=== PATIENT | male | born 1955 ===

== ENCOUNTER 2018-09-13 05:57 | Inpatient (IN) | payer BC ==
--- NOTE | 2018-09-07 19:18 | HP ---
AMENDED REPORT NOW INCLUDES DESIGNATED COSIGNER HISTORY AND PHYSICAL: DATE OF ADMISSION/SURGERY: 09/13/18 DATE OF OFFICE VISIT: 09/07/18 SURGEON: Natalie Russell MD. * (DICTATED BY CLOVIS TABARES) PROCEDURE: Right total knee arthroplasty. CHIEF COMPLAINT: Right knee pain. HISTORY OF PRESENT ILLNESS: Mr. Townsend is a 63-year-old gentleman with continued complaints of right knee pain. He has failed conservative treatment and elected to proceed with a right total knee arthroplasty. PAST MEDICAL HISTORY: Sleep apnea, high cholesterol, anxiety, and hypertension. PAST SURGICAL HISTORY: Right knee arthroscopy, right foot surgery, and a cyst removal. CURRENT MEDICATIONS: 1. Magnesium. 2. Amlodipine 2.5 mg daily. 3. Fish oil. 4. Trazodone 50 mg q.h.s. 5. Nasonex. 6. Venlafaxine 37.5 mg daily. 7. Clonidine 0.1 mg twice a day. 8. Lovastatin 40 mg q.h.s. 9. Aspirin 81 mg daily. 10. Multivitamin. 11. Vitamin B12. 12. Olopatadine twice a day. ALLERGIES: To PINWORM MEDICATION. FAMILY HISTORY: Bladder cancer and leukemia. SOCIAL HISTORY: He is a 63-year-old gentleman, lives with his . He does not smoke or use drugs or alcohol. REVIEW OF SYSTEMS: A complete 14-point review of systems was reviewed with the patient. It was all negative or noncontributory. He denies history of DVT, PE , hepatitis, HIV, or anesthesia problems. PHYSICAL EXAMINATION GENERAL: He is well developed, well nourished, in no acute distress. VITAL SIGNS: He stands 74 inches tall, weighs 227 pounds. His blood pressure is 114/80 and his heart rate is 72. HEENT: Normocephalic, atraumatic. NECK: Supple. No palpable lymph nodes. PULMONARY: The lungs are clear to auscultation bilaterally. CARDIO: Regular rate and rhythm. Strong S1, S2. ABDOMEN: Soft, nontender, nondistended. NEUROLOGICAL: He is alert and oriented x3. MUSCULOSKELETAL: Right lower extremity: The skin is intact. There are no open wounds or abrasions. There is a moderate effusion. Range of motion is 15 to 120 degrees of flexion. There is a 12 to 15-degree valgus deformity of both knees, right greater than left. There is a 2+ dorsalis pedis pulse, intact sensation, and his lower extremity muscle group strengths are intact at 5/5. ASSESSMENT AND PLAN: Mr. Townsend is a 63-year-old gentleman with end-stage osteoarthritis of the right knee. He has failed conservative treatment and elected to proceed with a right total knee arthroplasty. The surgery is scheduled for 09/13/[address] Russell discussed the risks and benefits of the surgery at today's visit and all of his questions were answered. He will follow up with Dr. Russell 2 weeks after the surgery. CLOVIS TABARES [id number]/CPS #: [id number] MTDD
[~2018-09-13 05:57] MED LIST: Buffered Lidocaine 0.9% SYRIN* 5 ML/SYR SYRINGE INTRADERM ONE; Tranexamic Acid 1,000 MG in NS 0.9% 50 ML* (outpatient use) IV SCH
[2018-09-13] MEDS ORDERED: Gabapentin CAP(*) 300 MG PO ONE (06:00)
[2018-09-13] MEDS ORDERED: celeCOXIB CAP* 200 MG PO ONE (06:00)
[2018-09-13] MEDS ORDERED: Famotidine IV* 10 MG/ML 2 ML (20 mg) IV ONE (06:00)
[2018-09-13] MEDS ORDERED: Dexamethasone IV* 4 MG/ML 1 ML (4 MG) IV SLOW PU ONE (06:00)
[2018-09-13] MEDS ORDERED: Lactated Ringers 1000 ML Bag* 1,000 ML IV SCH (06:00)
--- OUTSIDE RECORDS SUMMARY | 2018-09-13 06:00 | XMS REPORT | Continuity of Care Document ---
:1955 External Reference #:[id number] Author Name David Degroot Care Team Providers Name Role Phone David Perry DO Primary Care Physician Unavailable Payers Type Date Identification Numbers Payment Provider Subscriber Policy Number: [id number] BS Facets Victor Hugo Townsend PayID: [id number] [address] [address] [place] [address] Advance Directives Description No Information Available Problems Date Description Provider Status Onset: 11/07/2017 Obstructive sleep apnea syndrome Ivette Natarajan DNP, FELIX, Active MAITRE D'-BC Onset: 06/04/2018 Localized, primary osteoarthritis Natalie Russell M.D. 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 [employer] Tobacco Use Start: Unknown Never Smoked Cigarettes Smoking Status Reviewed: 09/07/18 Never Smoked Cigarettes ETOH Use Denies alcohol use Tobacco Use Start: Unknown Patient has never smoked Recreational Drug Use Denies Drug Use Exercise Type/Frequency Exercises sporadically Allergies, Adverse Reactions, Alerts Date Description Reaction Status Severity Comments 09/06/2017 Pin Worm Medication Active Medications Medication Date Status Form Strength Qnty SIG Indications Ordering Provider Magnesium 11/07/ Active Capsules 500mg 1 tab by Ivette 2018 mouth Natarajan, every DNP, RN, other MAITRE D'- day. 400 mg per pt 01/08/18. Amlodipine / Active Tablets 2.5mg 1 by Unknown Besylate 0000 mouth every day Fish Oil / Active Capsules 1000mg 1 by Unknown 0000 mouth daily Trazodone HCL / Active Tablets 50mg 1 tablet Unknown 0000 at bedtime every night Nasonex / Active Suspension 50mcg/Act use two Unknown 0000 sprays in each nostril once daily Venlafaxine HCL / Active Caps ER 24HR 37.5mg once Unknown ER 0000 daily Clonidine HCL / Active Tablets 0.1mg 1 by Unknown 0000 mouth twice a day Lovastatin / Active Tablets 40mg take one Unknown 0000 tablet by mouth at bedtime Aspir-81 / Active Tablets DR 81mg 1 by Unknown 0000 mouth every day Multiple / Active Tablets 1 by Unknown Vitamin Plus 0000 mouth Lycopene every other day Vitamin B12 / Active Tablets 500mg 1 by Unknown 0000 mouth two times per day Olopatadine HCL / Active 1 drop Unknown 0000 each eye twice a day Tamsulosin HCL / Active Capsules 0.4mg 1 by Unknown 0000 mouth every day Lidocaine / Active Gel Patches 4% apply Unknown 0000 patch up to 12 hours once a day. Vitamin B 00/ Hx Tablets 100mg 1 by Unknown Complex 0000 - mouth 2017 day Patanol / Hx Solution 0.1% one drop Unknown 0000 - each eye 06/03/ twice a 2018 day Fexofenadine /00/ Hx Tablets 180mg once Unknown HCL 0000 - daily 2017 Acetaminophen 00/ Hx Capsules 500mg 1 po Unknown 0000 - daily as needed 2018 Ibuprofen 00/ Hx Capsules 200mg as Unknown 0000 - needed 2017 Kaopectate /00/ Hx Tablets As Unknown 0000 - directed , as 2018 needed Fexofenadine /00/ Hx Tablets 180mg 30tab 1 tab by Unknown HCL 0000 - s mouth 06/03/ every 2017 day in the morning prn Famotidine / Hx Tablets 20mg 1 by Unknown 0000 - mouth 2017 day as needed Immunizations Description No Information Available Vital Signs Date Vital Result Comment 09/07/2018 9:15am Height 74 inches 6'2" Weight 227.00 lb Heart Rate 72 /min BP Systolic 142 mmHg BP Diastolic 80 mmHg Respiratory Rate 18 /min Body Temperature 97.4 F Pain Level 5 BMI (Body Mass Index) 29.1 kg/m2 07/10/2018 8:59am Height 74 inches 6'2" Weight 223.12 lb Heart Rate 76 /min BP Systolic Sitting 110 mmHg Lue large cuff BP Diastolic Sitting 62 mmHg Lue large cuff Respiratory Rate 20 /min O2 % BldC Oximetry 96 % On Ra BMI (Body Mass Index) 28.6 kg/m2 06/04/2018 9:46am Height 74 inches 6'2" Weight 227.00 lb Heart Rate 60 /min BP Systolic 120 mmHg BP Diastolic 80 mmHg BMI (Body Mass Index) 29.1 kg/m2 04/05/2018 1:24pm Height 74 inches 6'2" Weight 258.00 lb Heart Rate 52 /min BP Systolic Sitting 124 mmHg BP Diastolic Sitting 86 mmHg Respiratory Rate 14 /min O2 % BldC Oximetry 98 % BMI (Body Mass Index) 33.1 kg/m2 01/08/2018 8:33am Height 74 inches 6'2" Weight 222.38 lb Heart Rate 64 /min BP Systolic Sitting 108 mmHg Lue large cuff BP Diastolic Sitting 60 mmHg Lue large cuff Respiratory Rate 16 /min O2 % BldC Oximetry 98 % On Ra BMI (Body Mass Index) 28.5 kg/m2 11/07/2017 8:09am Height 74 inches 6'2" Weight 226.00 lb Heart Rate 80 /min BP Systolic Sitting 122 mmHg Rue large cuff BP Diastolic Sitting 78 mmHg Rue large cuff Respiratory Rate 16 /min O2 % BldC Oximetry 97 % BMI (Body Mass Index) 29.0 kg/m2 09/06/2017 9:20am Height 74 inches 6'2" Weight 238.00 lb Heart Rate 72 /min BP Systolic Sitting 122 mmHg BP Diastolic Sitting 60 mmHg Respiratory Rate 18 /min O2 % BldC Oximetry 95 % BMI (Body Mass Index) 30.6 kg/m2 Neck Circumference in inches 16.5 Results Test Date Facility Test Result H/L Range Note Laboratory test 08/03/2018 [facility] Phosphorus 3.2 mg/dL N 2.5-5.[address] [place] [address] [phone] Magnesium 2.1 mg/dL N 1.9-2.7 TSH (Thyroid Stim Horm) 1.85 mcIU/mL N 0.34-5.60 Vitamin B12 635 pg/mL N 180-914 1 Lipid Profile 08/03/2018 [facility] Triglycerides 53 mg/dL 2 (Trig/Chol/HDL) [address] [place] [address] [phone] Cholesterol 165 mg/dL 3 HDL Cholesterol 57.7 mg/dL 4 LDL Cholesterol 97 mg/dL 5 Comp Metabolic Panel 08/03/2018 [facility] Sodium 140 mmol/L N 135-145 [address] [place] [address] [phone] Potassium 4.9 mmol/L N 3.5-5.0 Chloride 104 mmol/L N 101-111 Co2 Carbon Dioxide 31 mmol/L N 22-32 Anion Gap 5 mmol/L N 2-11 Glucose 109 mg/dL High 70-100 Blood Urea Nitrogen 22 mg/dL N 6-24 Creatinine 1.08 mg/dL N 0.67-1.17 BUN/Creatinine Ratio 20.4 High 8-20 Calcium 9.4 mg/dL N 8.6-10.3 Total Protein 6.5 g/dL N 6.4-8.9 Albumin 4.3 g/dL N 3.2-5.2 Globulin 2.2 g/dL N 2-4 Albumin/Globulin Ratio 2.0 N 1-3 Total Bilirubin 0.50 mg/dL N 0.2-1.0 Alkaline Phosphatase 89 U/L N 34-104 Alt 25 U/L N 7-52 Ast 21 U/L N 13-39 Egfr Non- 68.8 >60 Egfr 83.3 >60 6 CBC Auto Diff 08/03/2018 [facility] White Blood 5.5 10^3/uL N 3.5-10.[address] [place] [address] [phone] Red Blood Count 4.58 10^6/uL N 4.00-5.40 Hemoglobin 14.1 g/dL N 14.0-18.0 Hematocrit 42 % N 42-52 Mean Corpuscular Volume 91 fL N 80-94 Mean Corpuscular Hemoglobin 31 pg N 27-31 Mean Corpuscular HGB Conc 34 g/dL N 31-36 Red Cell Distribution Width 14 % N 10.5-15 Platelet Count 219 10^3/uL N 150-450 Mean Platelet Volume 7.6 fL N 7.4-10.4 Abs Neutrophils 3.6 10^3/uL N 1.5-7.7 Abs Lymphocytes 1.2 10^3/uL N 1.0-4.8 Abs Monocytes 0.5 10^3/uL N 0-0.8 Abs Eosinophils 0.3 10^3/uL N 0-0.6 Abs Basophils 0 10^3/uL N 0-0.2 Abs Nucleated RBC 0 10^3/uL Granulocyte % 64.9 % Lymphocyte % 21.6 % Monocyte % 8.3 % Eosinophil % 4.6 % Basophil % 0.6 % Nucleated Red Blood Cells % 0.1 1,25 Dihydroxy 08/03/2018 [facility] Calcitriol 38 pg/mL 18- 64 7 Vitamin D [address] [place] [address] [phone] Vitamin D 1,25 08/03/2018 [facility] Vitamin D Total 25.3 ng/mL N 20-50 And Vitamin D,2 [address] [facility] [address] [place] [address] [phone] Iron & Iron 08/03/2018 [facility] Iron 132 g/dL N 50-212 Binding Capacity [address] [place] [address] [phone] Unsaturated Iron Binding < 335 g/dL Total Iron Binding Capacity 350 g/dL N 250-450 Transferrin 250 mg/dL N 203-362 % Iron Saturation 38 % N 15-55 Laboratory test 08/03/2018 [facility] Ferritin 186.8 ng/mL N 24-336 finding [address] [place] [address] [phone] 1 Normal Range 180 to 914 Indeterminate Range 145 to 180 Deficient Range <145 2 Desirable: <150 Borderline High: 150-199 High: 200-499 Very High: >500 3 Desirable: <200 Borderline High: 200-239 High: >239 4 Low: <40 Desirable: 40-60 High: >60 5 Desirable: <100 Near Optimal: 100-129 Borderline High: 130-159 High: 160-189 Very High: >189 6 Because ethnic data is not always readily available, this report includes an eGFR for both -Americans and non- Americans. The National Kidney Disease Education Program (NKDEP) does not endorse the use of the MDRD equation for patients that are not between the ages of 18 and 70, are , have extremes of body size, muscle mass, or nutritional status, or are non- or non-. According to the National Kidney Foundation, irrespective of diagnosis, the stage of the disease is based on the level of kidney function: Stage Description GFR(mL/min/1.73 m(2)) 1 Kidney damage with normal or decreased GFR 90 2 Kidney damage with mild decrease in GFR 60-89 3 Moderate decrease in GFR 30-59 4 Severe decrease in GFR 15-29 5 Kidney failure <15 (or dialysis) 7 ADDITIONAL INFORMATION This test was developed and its performance characteristics determined by [facility] in a manner consistent with CLIA requirements. This test has not been cleared or approved by the U.S. Food and Drug Administration. 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 M.D. knee M25.562 Pain in left knee M25.461 Effusion, right knee M25.462 Effusion, left knee M17.0 Bilateral primary osteoarthritis of knee Office Visit 04/05/2018 Pulmonology And Ivette G47.33 Obstructive sleep 1:30p [facility], [facility].81 Restless legs syndrome G47.14 Hypersomnia due to medical condition Office Visit 01/08/2018 Pulmonology And Ivette G47.33 Obstructive sleep 8:15a [facility] Natarajan RN, apnea (adult) [facility] MAITRE D'-BC (pediatric) R09.02 Hypoxemia Office Visit 11/07/2017 Pulmonology And Ivette G47.33 Obstructive sleep 8:15a [facility] Natarajan RN, apnea (adult) [facility] MAITRE D'-BC (pediatric) Office Visit 09/06/2017 Pulmonology And Eileen Espino, R06.83 Snoring 9:30a [facility] R40.0 Somnolence G25.81 Restless legs syndrome 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 at [facility]09/13/2018 8:15 am - Radu Rodriguez PA-C at [facility]09/13/2018 8:15 am - CLOVIS June at [facility]10/31/2018 8:15 am - Ivette Natarajan DNP, RN, MAITRE D'-BC [facility]/13/2018 8:15 am - Natalie Russell M.D. at [facility]09/07/2018 - Natalie Russell M.D.M25.561 Pain in right kneeFollow up:Follow up: 2 weeks after cvfoxnzN62.461 Effusion, right kneeM17.0 Bilateral primary osteoarthritis of knee
--- OUTSIDE RECORDS SUMMARY | 2018-09-13 06:01 | XMS REPORT | Continuity of Care Document ---
:1955 External Reference #:[id number] Author Name Katerin Washington Care Team Providers Name Role Phone David Perry DO Primary Care Physician Unavailable Payers Type Date Identification Numbers Payment Provider Subscriber Policy Number: [id number] BS Facets Victor Hugo Townsend PayID: [id number] [address] [address] [place] [address] Advance Directives Description No Information Available Problems Date Description Provider Status Onset: 11/07/2017 Obstructive sleep apnea syndrome Ivette Natarajan DNP, FELIX, Active POLITICAL ADVISOR-BC Onset: 06/04/2018 Localized, primary osteoarthritis Natalie Russell M.D. Active Onset: 07/10/2018 Periodic limb movement disorder Ivette Natarajan DNP, RN, Active POLITICAL ADVISOR-BC Onset: 07/10/2018 Malaise and fatigue Ivette Natarajan DNP, FELIX, Active POLITICAL ADVISOR-BC Family History Date Family Member(s) Problem(s) Comments General Diabetes General Heart Disease General Hypertension General Cancer Father Anemia Father due to Leukemia () Father Leukemia Father Heavy snoring Mother Bladder Cancer Mother due to Cancer () Siblings 1 younger sister, her son nephew has sleep apnea Social History Type Date Description Comments Sex Unknown Marital Status Lives With 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 400 mg per pt 01/08/18. Amlodipine [...] 12 hours once a day. Vitamin B / Hx Tablets 100mg 1 by Unknown Complex 0000 - mouth 09/05/ 2017 day Patanol / Hx Solution 0.1% one drop Unknown 0000 - each eye 06/03/ twice a 2018 day Fexofenadine 00/ Hx Tablets 180mg once Unknown HCL 0000 - daily 2017 Acetaminophen 00/ Hx Capsules 500mg 1 po Unknown 0000 - daily as needed 2018 Ibuprofen 00/ Hx Capsules 200mg as Unknown 0000 - needed 2017 Kaopectate /00/ Hx Tablets As Unknown 0000 - directed , as 2018 needed Fexofenadine 00/ Hx Tablets 180mg 30tab 1 tab by Unknown HCL 0000 - s mouth 06/03/ every 2017 day in the morning prn Famotidine / Hx Tablets 20mg 1 by Unknown 0000 - mouth 06/03/ 2017 day as needed Immunizations Description No Information Available Vital Signs Date Vital Result Comment 07/10/2018 8:59am Height 74 inches 6'2" Weight [...] Result H/L Range Note Laboratory test 08/03/2018 [facility] Phosphorus 3.2 mg/dL N 2.5-5.[address] [place] [address] [phone] Magnesium 2.1 mg/dL N 1.9-2.7 TSH (Thyroid Stim Horm) 1.85 mcIU/mL N 0.34-5.60 Vitamin B12 635 pg/mL N 180-914 1 Lipid Profile 08/03/2018 [facility] Triglycerides 53 mg/dL 2 (Trig/Chol/HDL) [address] [place] [address] [phone] Cholesterol 165 mg/dL 3 HDL Cholesterol 57.7 mg/dL 4 LDL Cholesterol 97 mg/dL 5 Comp Metabolic Panel 08/03/2018 [facility] Sodium 140 mmol/L N 135-[address] [place] [address] [phone] Potassium 4.9 mmol/L N 3.5-5.0 Chloride 104 [...] 83.3 >60 6 CBC Auto Diff 08/03/2018 [facility] White Blood 5.5 10^3/uL N 3.5-10.[address] [place] [address] [phone] Red Blood Count 4.58 10^6/uL N 4.00-5.40 [...] Blood Cells % 0.1 1,25 Dihydroxy 08/03/2018 [facility] Calcitriol 38 pg/mL 18- 64 7 Vitamin D [address] [place] [address] [phone] Vitamin D 1,25 08/03/2018 [facility] Vitamin D Total 25.3 ng/mL N 20-50 And Vitamin D,2 [address] [facility] [address] [place] [address] [phone] Iron & Iron 08/03/2018 [facility] Iron 132 g/dL N 50-212 Binding Capacity [address] [place] [address] [phone] Unsaturated Iron Binding < 335 g/dL Total Iron Binding Capacity 350 g/dL N 250-450 Transferrin 250 mg/dL N 203-362 % Iron Saturation 38 % N 15-55 Laboratory test 08/03/2018 [facility] Ferritin 186.8 ng/mL N 24-336 finding [address] [place] [address] [phone] 1 Normal Range 180 to 914 Indeterminate [...] developed and its performance characteristics determined by [facility] in a manner consistent with CLIA requirements. This test has not been cleared or approved by the U.S. Food and Drug Administration. Test Performed by: [facility] [address] [place] [address] Procedures Date Code Description Status 06/19/2018 90708 Polysomnography Sleep Staging 4+ Parameters W/Cpap Completed 09/15/2017 93300 Sleep Study Unattended,HRT Rate,Oxygen Sat,Resp Completed Effort/Airflow Encounters Type Date Location Provider Dx Diagnosis Office Visit 07/10/2018 Pulmonology Les Natarajan, G47.33 Obstructive sleep 9:00a [facility] MADSEN, NICOLETTE-KARLY apnea (adult) [facility] (pediatric) G47.61 Periodic limb movement disorder R53.83 Other fatigue Office Visit 06/04/2018 9:00a [facility] Natalie Russell, M25.561 Pain in right Of C.M.A. M.D. knee M25.562 Pain in left knee M25.461 Effusion, right knee M25.462 Effusion, left knee M17.0 Bilateral primary osteoarthritis of knee Office Visit 04/05/2018 PulmonWillie G47.33 Obstructive sleep 1:30p [facility] Natarajan RN, apnea (adult) [facility] WILL-BC (pediatric) G25.81 Restless legs syndrome G47.14 Hypersomnia due to medical condition Office Visit 01/08/2018 Pulmonology And Ivette G47.33 Obstructive sleep 8:15a [facility] Natarajan RN, apnea (adult) [facility]- (pediatric) R09.02 Hypoxemia Office Visit 11/07/2017 Pulmonology And Ivette G47.33 Obstructive sleep 8:15a [facility] Natarajan RN, apnea (adult) [facility] (pediatric) Office Visit 09/06/2017 Pulmonology And Eileen Espino, R06.83 Snoring 9:30a [facility] R40.0 Somnolence G25.81 Restless legs syndrome 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 at [facility]09/07/2018 9:00 am - Natalie Russell M.D. at [facility]07/10/2018 - Ivette Natarajan DNP, RN, [facility]- BCG47.33 Obstructive sleep apnea (adult) (pediatric)Follow up:3 monthsRecommendations:Continue PAP device, Benefitting and compliant with treatment. Change CPAP to 7 cm. will order filters and supplies Cleaning Wipe off mask daily (baby wipe-no scent, or warm water) Clean mask, tubing, filter, and water chamber weekly in mild no scent dish soap and water. Hang to dry. If you have anysleepiness while driving you MUST avoid operating a vehicle or machinery. If you have difficulty with your equipment, or need to replace your mask or hoses, please contact your homecare agency. A weight change of 20 pounds or more may have an effect on your equipment; if you are experiencing problems please call for an appointment. If you have any further questions, please call the [facility] at [phone].g47.61 Periodic limb movement disorderRecommendations:Lab work can be done with your other fasting labsR53.83 Other fatigue
[2018-09-13] MEDS ORDERED: Dexamethasone IV* 4 MG/ML 1 ML (4 MG) ONE (06:52)
[2018-09-13] MEDS ORDERED: Famotidine IV* 10 MG/ML 2 ML (20 mg) ONE (06:52)
[2018-09-13] MEDS ORDERED: Gabapentin CAP(*) 300 MG ONE (06:53)
[2018-09-13] MEDS ORDERED: ceFAZolin 2 GM PREMIX in ORs 2 GM/50 ML BAG IVPB ONE (06:53)
[2018-09-13] MEDS ORDERED: celeCOXIB CAP* 100 MG ONE (06:53)
[2018-09-13] MEDS ORDERED: Bupivacaine 0.5%* 50 ML VIAL ONE (07:14)
[2018-09-13] MEDS ORDERED: Naloxone* 0.4 MG/ML 1 ML VIAL IV PRN (10:51)
[2018-09-13] MEDS ORDERED: Ondansetron INJ* 2 MG/ML VIAL IV PRN ×2 (10:51→11:33)
[2018-09-13] MEDS ORDERED: fentaNYL* 50 MCG/ML 2 ML VIAL (100 MCG VIAL) IV PRN (10:51)
[2018-09-13] MEDS ORDERED: HYDROmorphone INJ1* 1 MG/ML SYRINGE IV PRN (10:51)
[2018-09-13] MEDS ORDERED: Polyethylene Glycol 3350* 17 GM PACKET PO PRN (11:33)
[2018-09-13] MEDS ORDERED: diPHENhydraMINE IV* 50 MG/ML 1 ml VIAL (BENADRYL) IV PRN (11:33)
[2018-09-13] MEDS ORDERED: Magnesium Hydroxide LIQ* 30 ML UDC PO PRN (11:33)
[2018-09-13] MEDS ORDERED: Bisacodyl SUPP* 10 MG SUPP PR PRN (11:33)
[2018-09-13] MEDS ORDERED: Acetaminophen TAB* 325 MG PO PRN (11:33)
[2018-09-13] MEDS ORDERED: oxyCODONE/Acetamin 5/325 MG* TAB PO PRN (11:33)
[2018-09-13] MEDS ORDERED: Cyclobenzaprine TAB* 10 MG PO PRN (11:33)
[2018-09-13] MEDS ORDERED: MOMETASONE FUROATE BOTH NARES PRN (11:43)
[2018-09-13] MEDS ORDERED: fentaNYL* 50 MCG/ML 2 ML VIAL (100 MCG VIAL) ONE (12:03)
[2018-09-13] MEDS: Lactated Ringers 1000 ML Bag* 1,000 ML IV SCH ×2 (13:09→23:10)
[2018-09-13] MEDS ORDERED: celeCOXIB CAP* 100 MG PO ONE (14:00)
[2018-09-13] MEDS: oxyCODONE/Acetamin 5/325 MG* TAB PO PRN ×3 (14:18→23:38)
[2018-09-13] MEDS ORDERED: Fluticasone NASAL SPRAY 50MCG* 16 gm SPRAY BTL BOTH NARES PRN (15:00)
[2018-09-13] MEDS: ceFAZolin 1 GM ADVAN(*) 1 GM in NS 0.9% 50 ML* 50 ML IVPB SCH ×2 (16:42→23:50)
[2018-09-13] MEDS ORDERED: Warfarin TAB(*) 6 MG PO ONE (17:00)
--- NOTE | 2018-09-13 17:02 | PN ---
Progress Note - Progress Note Date of Service: 09/13/18 SOAP: Patient seen and examined at bedside POD 0 sp RTK. He feels well with well controlled right knee pain. Has been OOB walking. Denies CP, SOB, dizziness, nausea, back pain or headache. No history of DVT or PE, using lovenox bridge to coumadin for DCT prophylaxis. RLE: DF/PF intact, DP2+, sensation intact distally. Site of spinal with dressing in place, no erythema, edema or drainage evident.
[2018-09-13] MEDS: amLODIPine TAB* 5 MG PO SCH (17:35)
[2018-09-13] MEDS: Fluticasone NASAL SPRAY 50MCG* 16 gm SPRAY BTL BOTH NARES SCH (17:36)
[2018-09-13] MEDS: Atorvastatin* 10 MG TAB PO SCH (17:36)
[2018-09-13] MEDS ORDERED: amLODIPine TAB* 5 MG PO SCH (18:00)
[2018-09-13] MEDS: traZODone TAB* 50 MG TAB PO SCH (21:09)
[2018-09-13] MEDS: Tamsulosin CAP* 0.4 MG PO SCH (21:09)
[2018-09-13] MEDS: oxyCODONE TAB* 5 MG TAB PO PRN (21:09)
[2018-09-13] MEDS: Docusate CAP* 100 MG PO SCH (21:10)
[2018-09-13] MEDS: Magnesium Hydroxide LIQ* 30 ML UDC PO SCH (21:10)
--- NOTE | 2018-09-13 23:22 | OP ---
DATE OF OPERATION: 09/13/18 - ROOM #349 DATE OF : 53 SURGEON: Natalie Russell MD. SUPERINTENDENT CONTAINER TERMINAL: CLOVIS Workman. Ms. Rodriguez did help throughout the procedure with preparation of the leg, wound retraction, manipulation of the knee and wound closure. ANESTHESIOLOGIST: Dr. Davis. ANESTHESIA: Spinal. PRE-OP DIAGNOSIS: Severe endstage degenerative osteoarthritis of the right knee joint with valgus deformity and flexion contracture. POST-OP DIAGNOSIS: Severe endstage degenerative osteoarthritis of the right knee joint with valgus deformity and flexion contracture. OPERATIVE PROCEDURE: Right total knee arthroplasty. TOURNIQUET TIME: 51 minutes. COMPLICATIONS: None. ESTIMATED BLOOD LOSS: 200 cc. SPECIMENS: Bone and cartilage from the right knee joint sent to Pathology. HARDWARE USED: This is cemented [employer] total knee arthroplasty hardware. Two packages of Simplex bone cement. For the femur, a size 8 right posterior- stabilized Legion Oxinium femoral component. For the tibia, a size 7 right tibial baseplate. For the insert, a 9-mm posterior-stabilized articular insert, size 7/8, and for the patella, 38-mm 3-peg all-poly patella. BRIEF HISTORY/INDICATIONS: Mr. Townsend is a 63-year-old gentleman with years of increasingly severe right knee pain and loss of motion. He developed valgus deformity. Radiographs showed endstage arthritis with [id number] contact. He failed conservative treatment with antiinflammatories, pain medication, intraarticular injections, and physical therapy. Due to continued pain and decreased quality of life, he elected to undergo right total knee arthroplasty. Informed consent was obtained from the patient. He understood the risks of surgery included to, but were not limited to bleeding, infection, damage to nearby structures, continued pain, need for further surgery, intraoperative fracture, nerve palsy, hardware failure or loosening, knee stiffness, loss of motion, anesthetic complications, stroke, heart attack, blood clot, and . He wished to proceed. INTRAOPERATIVE FINDINGS: Intraoperatively, the patient was noted to have severe flexion contracture of 25 degrees at start of case. He was brought to full extension. He was noted to have 17-degree valgus deformity. The patient was noted to have extensive osteophyte formation and complete loss of cartilage in the patellofemoral and lateral compartment. DESCRIPTION OF PROCEDURE: Mr. Townsend was identified in the preanesthesia unit. His right lower extremity was marked as the correct operative side. Informed consent was signed and placed in the chart. The patient was taken to the operating room. While the patient was having spinal anesthetic placed, spinal needle did break and a piece of the needle was retained in the patient. Dr. Voss, our neurosurgeon did make a small incision under sterile conditions and removed the broken needle. The entire needle was removed and this was confirmed with C-arm views. Please see his note for the procedure. Sandoval catheter was placed. Tourniquet was placed on the right thigh. Right lower extremity was prepped and draped in the usual sterile fashion. Preop time -out was made to correctly identify the patient, side and site. Appropriate perioperative antibiotics were given within 1 hour of incision. The tourniquet was inflated and total tourniquet time for this procedure was 58 minutes. A midline incision was made with a 10 blade and carried down to the extensor mechanism. A new 10 blade was used to make a standard medial parapatellar arthrotomy. The patella was subluxed laterally. Electrocautery was used to subperiosteally elevate soft tissue off the superomedial tibia to the midsagittal plane. The knee was flexed up. The anterior horn of the lateral meniscus and ACL were sharply released. A drill was used to enter the distal femur. Intramedullary distal femoral cutting guide was pinned on the distal femur. Oscillating saw was used to make the distal femoral cut. Next, the external rotation guide was pinned on the distal femur. Distal femur was sized to a size 8. Size 8 multi-cutting jig was pinned on the distal femur. Oscillating saw was used to make the appropriate 4 chamfer cuts. Extramedullary tibial cutting guide was pinned on the proximal tibia. Oscillating saw was used to make the proximal tibial cut perpendicular to the mechanical axis of the tibia. The bone was carefully removed. The knee was brought out to full extension. The knee did have full extension which was much improved from the flexion contracture of 25 degrees at start of the case. There was significant improvement in the valgus alignment to about 12 degrees. Electrocautery was used to release along the posterolateral capsule. A #15 blade was used in a pie- crusting technique to release some of the lateral ligament. The overall alignment was improved to about 10 degrees of valgus. Flexion and extension gaps were well balanced. The knee was flexed up. A lamina resource teacher was placed both medially and laterally. Any remaining meniscus was carefully removed using electrocautery. Curved osteotome was used to remove any posterior osteophytes. Tibial tray and drop meghna were placed and once again confirmed satisfactory tibial cut. A size 8 right femoral trial was impacted onto the distal femur and had excellent fit and stability. The box for the posterior-stabilized implant was prepared using a reamer and box cut osteotome. A size 7 tibial tray with a 9- mm insert trial was placed and the knee was taken through a range of motion. The knee had full extension to 130 degrees of flexion with satisfactory patellofemoral tracking. The patella was everted. A 9 mm of patellar bone and cartilage was carefully removed using an oscillating saw. The patella was sized to a size 38. Three peg holes were drilled through the size 38 guide. A 38 trial was placed and the knee was taken through a range of motion. There was satisfactory patellofemoral tracking. All trials were removed. The tibia was subluxed anteriorly and sized to a size 7. Proximal tibia was prepared using a size 7 keel punch. All bony cut surfaces were copiously irrigated with sterile saline and dried. Final implants were cemented into place starting with the tibia, followed by the femur , and last the patella. A 9-mm insert trial was placed and the knee was brought out into full extension. Tourniquet was turned down at 51 minutes. Electrocautery was used to obtain meticulous hemostasis. The knee was copiously irrigated with sterile saline. Once the cement had fully cured, the insert trial was removed. Any excess cement was removed from around the capsule and hardware. A 9 mm insert trial was chosen as a final insert. This was locked into position on the tibial tray. Stability of the insert was checked and rechecked and noted to be stable. The extensor mechanism was closed using interrupted #1 Vicryls. The rest of the incision was closed in a layered fashion using 0 and 2-0 Vicryls. Skin was closed using running 3-0 nylon suture. Sterile Xeroform, 4x4s, and Webril were used to cover the incision. Cameron wrap and cold pack were placed over this. The patient's anesthesia was reversed without difficulty. He was taken to the PACU in stable condition. Intended weightbearing will be weightbearing as tolerated. Intended DVT prophylaxis will be Coumadin with a Lovenox bridge. [id number]/[facility] #: [id number] KENDELL
[2018-09-13] MEDS: Morphine VIAL* 4 MG/ML VIAL (1 ml vial) IV PRN (23:47)
[2018-09-14] MEDS: oxyCODONE TAB* 5 MG TAB PO PRN ×5 (02:21→21:16)
[2018-09-14] MEDS: Morphine VIAL* 4 MG/ML VIAL (1 ml vial) IV PRN ×2 (02:23→04:28)
[2018-09-14] MEDS: oxyCODONE/Acetamin 5/325 MG* TAB PO PRN ×5 (04:23→23:19)
[2018-09-14 05:39] LABS: Hematocrit 38 % (42-52); Hemoglobin 12.7 g/dl (14.0-18.0); Mean Platelet Volume 7.2 fL (7.4-10.4); Platelet Count 216 10^3/ul (150-450)
[2018-09-14 05:45] LABS: INR 1.05 (0.77-1.02)
[2018-09-14 06:02] LABS: BUN/Creatinine Ratio 16.2 (8-20); Calcium 8.9 mg/dL (8.6-10.3); EGFR African American 92.1 (>60); EGFR Non-African American 76.1 (>60); Potassium 4.3 mmol/L (3.5-5.0)
[2018-09-14] MEDS: ceFAZolin 1 GM ADVAN(*) 1 GM in NS 0.9% 50 ML* 50 ML IVPB SCH (09:10)
[2018-09-14] MEDS: Magnesium Hydroxide LIQ* 30 ML UDC PO SCH ×2 (09:10→22:24)
[2018-09-14] MEDS: Docusate CAP* 100 MG PO SCH ×2 (09:10→22:23)
[2018-09-14] MEDS: Fluticasone NASAL SPRAY 50MCG* 16 gm SPRAY BTL BOTH NARES SCH (09:24)
--- NOTE | 2018-09-14 11:30 | PN ---
Progress Note - Progress Note Date of Service: 09/14/18 SOAP: Subjective: []Chatotient seen this am OOB in chair. He had difficulty with pain management last night and did not sleep although better this am. He denies headache, SOB, CP, palpitations or dizziness. He feels he would like to stay until tomorrow. Objective: [] Vital Signs Temp 98.6 F 09/14/18 04:22 Pulse 67 09/14/18 04:22 Resp 18 09/14/18 11:17 BP 151/79 09/14/18 04:22 Pulse Ox 97 09/14/18 08:00 Intake & Output 09/13/18 09/14/18 09/14/18 18:59 06:59 18:59 Intake Total 1550 1335 480 Output Total 1150 2050 200 Balance 400 -715 280 Weight 228 lb 3.2 oz Intake: IV Fluids 1550 990 LR 990 NS 50ML, Cefazolin 2G 50 lr 1500 IVPB 55 ABX - CEFAZOLIN 55 Oral 290 480 Output: Urine 200 Sandoval 1150 2050 Other: # Bowel Movements 0 Laboratory Results - last 24 hr 09/14/18 09/14/18 09/14/18 05:10 05:10 05:10 Hgb 12.7 L Hct 38 L Plt Count 216 MPV 7.2 L INR (Anticoag Therapy) 1.05 H Sodium 137 Potassium 4.3 Chloride 103 Carbon Dioxide 29 Anion Gap 5 BUN 16 Creatinine 0.99 Est GFR ( Amer) 92.1 Est GFR (Non-Af Amer) 76.1 BUN/Creatinine Ratio 16.2 Glucose 132 H Calcium 8.9 spine dressing dry and intact Right knee dressings are dry and intact calf NT and soft +Df right ankle sensation and circulation intact distally Assessment: []s/p Right total knee arthroplasty POD #1 Plan: []PT/OT WBAT RLE Coumadin with Lovenox bridge- 8 mg today Probable discharge home tomorrow Follow up with Dr. Russell as scheduled 10-14 days
[2018-09-14] MEDS: Enoxaparin(*) 40 MG/0.4 ML SYR SUBCUT SCH (11:36)
--- NOTE | 2018-09-14 11:40 | CONS ---
[facility] MEDICINE CONSULTATION REPORT: DATE OF ADMISSION: 09/13/18 DATE OF CONSULT: 09/13/18 PROVIDER: Ariella Castañeda NP ATTENDING PHYSICIAN: Dr. Russell. CONSULTING PHYSICIAN: Dr. Ramy Miner (dictated by Ariella Castañeda NP) . REASON FOR CONSULT: Comanagement of chronic medical conditions. HISTORY OF PRESENT ILLNESS: Mr. Townsend is a 63-year-old male with a past medical history significant for hypertension, hyperlipidemia, anxiety, and BPH who presented to [facility] for an elective right total knee arthroplasty. For complete details, please see H and P from CLOVIS Lai. In brief, the patient continued to complain of right knee pain, failed conservative treatment , and elected to proceed with the right total knee arthroplasty with Dr. Russell. In the immediate postoperative period, the patient has no complaints. Denies any nausea, vomiting, or diarrhea. Denies any abdominal pain. Denies any chest pain or shortness of breath. Denies any fever or chills. He denies any recent sick contacts or illnesses. Given his history of hypertension and hyperlipidemia, we were asked to see and evaluate him to help co-manage his chronic medical conditions. PAST MEDICAL HISTORY: 1. Hyperlipidemia. 2. Hypertension. 3. Anxiety. 4. BPH. 5. Sleep apnea. PAST SURGICAL HISTORY: 1. Right total knee arthroplasty. 2. Right foot surgery. 3. History of cyst removal. FAMILY HISTORY: No reported history of coronary artery disease or diabetes. Father had a history of leukemia. Mother with bladder and breast cancer. Sister with precancerous breast cancer. SOCIAL HISTORY: He denies any tobacco, alcohol, or illicit drug use. Surrogate decision maker in the event he is unable to make his own decisions is his . He is a full code. REVIEW OF SYSTEMS: A 14-point review of systems was completed and all pertinent positives are mentioned in the HPI. He does complain of mild right knee pain and mild anxiety prior to the procedure. Other than that all review of systems was negative. PHYSICAL EXAMINATION: General: Mr. Townsend is a 63-year-old male, resting in his room. He is awake, alert, and oriented x3. He appears well nourished, in no acute distress. HEENT: Head is atraumatic, normocephalic. Eyes: EOMs are intact. Sclerae anicteric and not pale. Oral mucosa appeared to be moist. Neck is supple. Lungs are clear to auscultation bilaterally. No wheezes, rales , or rhonchi. Cardiac: S1, S2. Regular rate and rhythm. No murmurs, rubs, or gallops. Abdomen: Soft and nontender. Bowel sounds are present x4. Back: He has a dressing dry and intact to his lower back. There is no swelling or edema noted around spinal sites. Extremities: Pedal pulses are +2 bilaterally. He is able to flex and extend both bilateral feet. Sensation is intact bilateral lower extremities. He does have some mild diminished sensations to the left lower leg. Skin: Dressing is dry and intact to his lower back and right knee. DIAGNOSTIC STUDIES/LAB DATA: WBCs on 09/07/18 were 5.8, RBCs 4.75, hemoglobin 14.7, hematocrit was 43, platelet count was 242. Sodium 139, potassium 4.9, chloride 102, carbon dioxide was 32, anion gap of 5, BUN was 19, creatinine 1.11. Urine was yellow, clear, was within normal limits, no abnormalities. IMPRESSION AND PLAN: Mr. Townsend is a 63-year-old male with past medical history significant for hypertension, hyperlipidemia, anxiety, sleep apnea, and benign prostatic hypertrophy who presented to [facility] for an elective right total knee arthroplasty with Dr. Russell. In the immediate postoperative period, we were asked to consult and comanage his chronic medical conditions. Our recommendations are as follows: 1. Status post total right knee arthroplasty. Management per Orthopedics. PT/ OT per Orthopedics. 2. Hypertension. I would continue his clonidine as previously prescribed. I would continue his amlodipine 2.5 mg as previously prescribed. 3. Hyperlipidemia. Continue his atorvastatin 10 mg as previously prescribed. 4. Benign prostatic hypertrophy. Continue his tamsulosin 0.4 mg at bedtime. 5. Anxiety. I would continue his Effexor 37.5 mg p.o. daily and trazodone as needed for sleep. 6. DVT prophylaxis per Orthopedics. 7. Diet. I will place him on a heart healthy, decaf okay diet. 8. Code status. He is a full code. TIME SPENT: Time spent on this consultation was 45 minutes, greater than half that time was spent at the bedside reviewing events leading thus far to his hospitalization, performing physical exam, and reviewing my plan of care. I have discussed this with my attending, Dr. Ramy Miner. He is in agreement with my plan. ARIELLA CASTAÑEDA, IBIS [id number]/[facility] #: [id number] KENDELL
--- NOTE | 2018-09-14 14:07 | OP ---
DATE OF OPERATION: 09/13/18 - ROOM #349 DATE OF : 53 SURGEON: Heather Voss MD. ANESTHESIA: Local with sedation. PRE-OP DIAGNOSIS: Retained needle fragment. POST-OP DIAGNOSIS: Retained needle fragment. OPERATIVE PROCEDURE: The patient underwent exploration of lumbar puncture site and removal of retained spinal puncture needle fragment. ESTIMATED BLOOD LOSS: Minimal. SUMMARY: The patient is a very pleasant 63-year-old gentleman who was scheduled for a right total knee replacement by Dr. Russell. During induction of spinal anesthesia, it was noted that the spinal needle had fractured and a part of the needle was retained into the patient's body. For this reason I was consulted as an emergency to help for the removal of the foreign object. The case was done as an emergency with 2 physicians' consent. DESCRIPTION OF PROCEDURE: The patient was placed on the lateral decubitus condition and the skin was prepped and draped in a sterile standard fashion. After appropriate surgical pause and patient identification and under fluoroscopic guidance, the retained spinal needle fragment was identified and an incision over the lumbar puncture site was made with a #10 surgical blade, after infiltrating the skin with local anesthetic. Incision was carried down to the dorsal fascia and under fluoroscopic guidance the retained spinal needle fragment was identified and it was gently removed with use of a hemostat. Intraoperative fluoroscopic imaging confirmed the removal of the whole spinal needle fragment with no residual foreign objects in the area. This was also confirmed by comparing the spinal needle to an intact needle. After copious irrigation and confirmation of meticulous hemostasis, meticulous inspection of the wound, the wound was closed by layers with 2-0 inverted interrupted Vicryl sutures to approximate the subcutaneous tissue and the skin was covered with Dermabond. At the end of procedure, all counts were reported to be correct. The patient remained hemodynamically stable throughout the case, and continued to proceed with the planned operation by Dr. Russell. [id number]/[facility] #: [id number] [facility]
--- NOTE | 2018-09-14 14:28 | PN ---
Subjective Date of Service: 09/14/18 Interval History: Patient had significant pain control issues yesterday night but is now under better control with morphine. Patient is passing flatus and urine. Patient denies CP, SOB, F/C, N/V, abdominal pain, dizziness on standing, or other pain. Patient is doing well with PT. Family History: Unchanged from Admission Social History: Unchanged from Admission Past Medical History: Unchanged from Admission Objective Active Medications: Acetaminophen (Tylenol Tab*) 650 mg PO Q8H PRN PRN Reason: PAIN OR TEMPERATURE Amlodipine Besylate (Norvasc Tab*) 2.5 mg PO QPM [facility] Last Admin: 09/13/18 17:35 Dose: 2.5 mg Atorvastatin Calcium (Lipitor*) 10 mg PO QPM [facility] Last Admin: 09/13/18 17:36 Dose: 10 mg Bisacodyl (Dulcolax Supp*) 10 mg NV DAILY PRN PRN Reason: constipation Clonidine HCl (Catapres Tab*) 0.1 mg PO BID [facility] Cyclobenzaprine HCl (Flexeril Tab*) 5 mg PO TID PRN PRN Reason: SPASMS Last Admin: 09/14/18 01:13 Dose: 5 mg Diphenhydramine HCl (Benadryl Iv*) 25 mg IV Q6H PRN PRN Reason: itching Docusate Sodium (Colace Cap*) 100 mg PO BID [facility] Last Admin: 09/14/18 09:10 Dose: 100 mg Enoxaparin Sodium (Lovenox(*)) 40 mg SUBCUT Q24H [facility] Last Admin: 09/14/18 11:36 Dose: 40 mg Fluticasone Propionate (Flonase Nasal [place] 50mcg*) 2 spray BOTH NARES QAM [facility] Last Admin: 09/14/18 09:24 Dose: 2 spray Fluticasone Propionate (Flonase Nasal [place] 50mcg*) 2 spray BOTH NARES DAILY PRN PRN Reason: CONGESTION Lactated Ringer's (Lactated Ringers 1000 Ml Bag*) 1,000 mls @ 100 mls/hr IV PER RATE [facility] Last Admin: 09/13/18 23:10 Dose: 100 mls/hr Magnesium Hydroxide (Milk Of Magnesia Liq*) 30 ml PO BID [facility] Last Admin: 09/14/18 09:10 Dose: 30 ml Magnesium Hydroxide (Milk Of Magnesia Liq*) 30 ml PO Q6H PRN PRN Reason: constipation Morphine Sulfate (Morphine Vial*) 2 mg IV Q2H PRN PRN Reason: PAIN Last Admin: 09/14/18 04:28 Dose: 2 mg Olopatadine HCl (Patanol 0.1% Ophth (Nf)) 1 drop BOTH EYES QAM [facility] Ondansetron HCl (Zofran Inj*) 4 mg IV Q6H PRN PRN Reason: nausea Oxycodone HCl (Roxycodone Tab*) 10 mg PO Q4H PRN PRN Reason: PAIN - SEVERE Last Admin: 09/14/18 12:53 Dose: 10 mg Oxycodone/Acetaminophen (Percocet 5/325 Tab*) 1 tab PO Q4H PRN PRN Reason: PAIN Oxycodone/Acetaminophen (Percocet 5/325 Tab*) 2 tab PO Q4H PRN PRN Reason: PAIN Last Admin: 09/14/18 09:09 Dose: 2 tab Polyethylene Glycol/Electrolytes (Miralax*) 17 gm PO DAILY PRN PRN Reason: Constipation Tamsulosin HCl (Flomax Cap*) 0.4 mg PO BEDTIME [facility] Last Admin: 09/13/18 21:09 Dose: 0.4 mg Trazodone HCl (Desyrel Tab*) 50 mg PO BEDTIME [facility] Last Admin: 09/13/18 21:09 Dose: 50 mg Venlafaxine HCl (Effexor Xr Cap*) 37.5 mg PO QAM [facility] Warfarin Sodium (Coumadin Tab(*)) 8 mg PO ONCE@1700 ONE; Protocol Stop: 09/14/18 17:01 Vital Signs - 8 hr 09/14/18 09/14/18 09/14/18 08:00 09:09 11:17 Respiratory 18 18 18 Rate O2 Sat by Pulse 97 Oximetry 09/14/18 12:53 Respiratory 16 Rate O2 Sat by Pulse Oximetry Oxygen Devices in Use Now: None Appearance: Patient is a 63yo male who appears stated age and is sitting in the bed in NAD. Eyes: No Scleral Icterus, PERRLA Ears/Nose/Mouth/Throat: NL Teeth, Lips, Gums, Clear Oropharnyx, Mucous Membranes Moist Neck: NL Appearance and Movements; NL JVP, Trachea Midline Respiratory: Symmetrical Chest Expansion and Respiratory Effort, Clear to Auscultation Cardiovascular: NL Sounds; No Murmurs; No JVD, RRR, No Edema Abdominal: NL Sounds; No Tenderness; No Distention, No Hepatosplenomegaly Lymphatic: No Cervical Adenopathy Extremities: No Edema, No Clubbing, Cyanosis Skin: No Nodules or Sclerosis, - - Right knee bulky dressing, neurovascularly intact distally. Neurological: Alert and Oriented x 3, NL Sensation, NL Muscle Strength and Tone , - - CN II-XII intact. Result Diagrams: 09/14/18 05:10 09/14/18 05:10 Assess/Plan/Problems-Billing Assessment: Patient is a 63yo male with a PMH for ANKUR, HTN who is S/P RTKA and is doing well. - Patient Problems (1) Post-operative state Current Visit: Yes Status: Acute Code(s): Z98.890 - OTHER SPECIFIED POSTPROCEDURAL STATES SNOMED Code(s): 49242180 Comment: - Operative course complicated by broken epidural needle, now resolved with no deficits - Pain better controlled - No BM, urinating without difficulty (2) ANKUR (obstructive sleep apnea) Current Visit: Yes Status: Acute Code(s): G47.33 - OBSTRUCTIVE SLEEP APNEA ( ADULT) (PEDIATRIC) SNOMED Code(s): 01874905 Comment: - Continue CPAP (3) HTN (hypertension) Current Visit: Yes Status: Acute Code(s): I10 - ESSENTIAL (PRIMARY) HYPERTENSION SNOMED Code(s): 58210741 Comment: - Slightly hypertensive, resume clonidine and start amlodipine. (4) BPH (benign prostatic hyperplasia) Current Visit: Yes Status: Acute Code(s): N40.0 - BENIGN PROSTATIC HYPERPLASIA WITHOUT LOWER URINRY TRACT SYMP SNOMED Code(s): 305862308 Comment: - Urinating without difficulty after leyva removal - Continue flomax. (5) DVT prophylaxis Current Visit: Yes Status: Acute Code(s): KIZ8168 - SNOMED Code(s): 892341570 Comment: - Lovenox to warfarin per ortho. Status and Disposition: Per Ortho, hopeful D/C tomorrow.
[2018-09-14] MEDS ORDERED: Warfarin TAB(*) 4 MG PO ONE (17:00)
[2018-09-14] MEDS ORDERED: LORazepam TAB(*) 1 MG PO ONE (17:21)
[2018-09-14] MEDS: Atorvastatin* 10 MG TAB PO SCH (18:18)
[2018-09-14] MEDS: amLODIPine TAB* 5 MG PO SCH (18:19)
[2018-09-14] MEDS: Tamsulosin CAP* 0.4 MG PO SCH (22:23)
[2018-09-14] MEDS: cloNIDine TAB* 0.1 MG PO SCH (22:23)
[2018-09-14] MEDS: traZODone TAB* 50 MG TAB PO SCH (22:23)
[2018-09-15] MEDS: oxyCODONE TAB* 5 MG TAB PO PRN ×3 (01:21→10:44)
[2018-09-15] MEDS: oxyCODONE/Acetamin 5/325 MG* TAB PO PRN ×2 (03:12→07:49)
[2018-09-15 05:56] LABS: Hematocrit 37 % (42-52); Hemoglobin 12.8 g/dl (14.0-18.0); Mean Platelet Volume 7.5 fL (7.4-10.4); Platelet Count 183 10^3/ul (150-450)
[2018-09-15 05:57] LABS: INR 1.12 (0.77-1.02)
[2018-09-15] MEDS: cloNIDine TAB* 0.1 MG PO SCH ×2 (07:48→21:38)
[2018-09-15] MEDS: Venlafaxine EXT RELEASE CAP* 37.5 MG PO SCH (07:48)
[2018-09-15] MEDS: Magnesium Hydroxide LIQ* 30 ML UDC PO SCH ×2 (07:48→21:38)
[2018-09-15] MEDS: Docusate CAP* 100 MG PO SCH ×2 (07:48→21:38)
[2018-09-15] MEDS: Enoxaparin(*) 40 MG/0.4 ML SYR SUBCUT SCH (07:49)
[2018-09-15] MEDS: Fluticasone NASAL SPRAY 50MCG* 16 gm SPRAY BTL BOTH NARES SCH (07:50)
[2018-09-15] MEDS: CMCS: Olopatadine 0.1% OPHTH (NF) 1 DROP BTL BOTH EYES SCH (07:53)
[2018-09-15] MEDS ORDERED: diPHENhydraMINE PO* 25 MG PO PRN (08:01)
[2018-09-15] MEDS ORDERED: Morphine TAB Extended Release (*) 30 MG TAB.ER PO SCH (10:00)
[2018-09-15] MEDS ORDERED: diPHENhydraMINE PO* 25 MG ONE ×2 (10:34→11:40)
--- NOTE | 2018-09-15 12:48 | PN ---
Progress Note - Progress Note Date of Service: 09/15/18 SOAP: Subjective: Pt is doing well. Pain controlled with oral pain meds every 2 hours. Doing well with PT. Denies CP/SOB, F/C or calf pain. He c/o itching d/t pain meds Objective: PE- 63 y/o WDWN M NAD A&Ox3 RLE- dressing changed, inc c/d/i, calf soft NT, +DF/PF ankle, NVI Vital Signs Temp Pulse Resp BP Pulse Ox 98.0 F 91 20 131/63 95 09/15/18 07:43 09/15/18 07:43 09/15/18 07:49 09/15/18 07:43 09/15/18 07:43 Laboratory Results - last 24 hr 09/15/18 09/15/18 05:20 05:20 Hgb 12.8 L Hct 37 L Plt Count 183 MPV 7.5 INR (Anticoag Therapy) 1.12 H Assessment: []s/p Right total knee arthroplasty POD #2 Plan: []PT/OT WBAT RLE Coumadin with Lovenox bridge- 8 mg today Morphine sulfate ER 15 mg bid started for pain control Oral Benadryl for itching Probable discharge home tomorrow with outpatient PT Follow up with Dr. Russell as scheduled 10-14 days
--- NOTE | 2018-09-15 13:30 | PN ---
Subjective Date of Service: 09/15/18 Interval History: Patient is having trouble sleeping in the bed due to pain with keeping leg straight. Patient feels somewhat constipated. Patient is passing flatus. Patient denies CP, F/C, N/V, diarrhea, dysuria, incomplete emptying, or other pain. Family History: Unchanged from Admission Social History: Unchanged from Admission Past Medical History: Unchanged from Admission Objective Active Medications: Acetaminophen (Tylenol Tab*) 650 mg PO Q8H PRN PRN Reason: PAIN OR TEMPERATURE Amlodipine Besylate (Norvasc Tab*) 2.5 mg PO QPM [facility] Last Admin: 09/14/18 18:19 Dose: 2.5 mg Atorvastatin Calcium (Lipitor*) 10 mg PO QPM [facility] Last Admin: 09/14/18 18:18 Dose: 10 mg Bisacodyl (Dulcolax Supp*) 10 mg VT DAILY PRN PRN Reason: constipation Clonidine HCl (Catapres Tab*) 0.1 mg PO BID [facility] Last Admin: 09/15/18 07:48 Dose: 0.1 mg Cyclobenzaprine HCl (Flexeril Tab*) 5 mg PO TID PRN PRN Reason: SPASMS Last Admin: 09/14/18 01:13 Dose: 5 mg Diphenhydramine HCl (Benadryl Iv*) 25 mg IV Q6H PRN PRN Reason: itching Docusate Sodium (Colace Cap*) 100 mg PO BID [facility] Last Admin: 09/15/18 07:48 Dose: 100 mg Enoxaparin Sodium (Lovenox(*)) 40 mg SUBCUT Q24H [facility] Last Admin: 09/15/18 07:49 Dose: 40 mg Fluticasone Propionate (Flonase Nasal [place] 50mcg*) 2 spray BOTH NARES QAM [facility] Last Admin: 09/15/18 07:50 Dose: 2 spray Lactated Ringer's (Lactated Ringers 1000 Ml Bag*) 1,000 mls @ 100 mls/hr IV PER RATE [facility] Last Admin: 09/13/18 23:10 Dose: 100 mls/hr Magnesium Hydroxide (Milk Of Magnesia Liq*) 30 ml PO BID [facility] Last Admin: 09/15/18 07:48 Dose: 30 ml Magnesium Hydroxide (Milk Of Magnesia Liq*) 30 ml PO Q6H PRN PRN Reason: constipation Morphine Sulfate (Morphine Vial*) 2 mg IV Q2H PRN PRN Reason: PAIN Last Admin: 09/14/18 04:28 Dose: 2 mg Olopatadine HCl (Patanol 0.1% Ophth (Nf)) 1 drop BOTH EYES QAM [facility] Last Admin: 09/15/18 07:53 Dose: 1 drop Ondansetron HCl (Zofran Inj*) 4 mg IV Q6H PRN PRN Reason: nausea Last Admin: 09/14/18 23:48 Dose: 4 mg Oxycodone HCl (Roxycodone Tab*) 10 mg PO Q4H PRN PRN Reason: PAIN - SEVERE Last Admin: 09/15/18 10:44 Dose: 10 mg Oxycodone/Acetaminophen (Percocet 5/325 Tab*) 1 tab PO Q4H PRN PRN Reason: PAIN Oxycodone/Acetaminophen (Percocet 5/325 Tab*) 2 tab PO Q4H PRN PRN Reason: PAIN Last Admin: 09/15/18 07:49 Dose: 2 tab Polyethylene Glycol/Electrolytes (Miralax*) 17 gm PO DAILY PRN PRN Reason: Constipation Tamsulosin HCl (Flomax Cap*) 0.4 mg PO BEDTIME [facility] Last Admin: 09/14/18 22:23 Dose: 0.4 mg Trazodone HCl (Desyrel Tab*) 50 mg PO BEDTIME [facility] Last Admin: 09/14/18 22:23 Dose: 50 mg Venlafaxine HCl (Effexor Xr Cap*) 37.5 mg PO QAM [facility] Last Admin: 09/15/18 07:48 Dose: 37.5 mg Vital Signs - 8 hr 09/15/18 09/15/18 09/15/18 07:43 07:49 09:30 Temperature 98.0 F Pulse Rate 91 Respiratory 17 20 16 Rate Blood Pressure 131/63 (mmHg) O2 Sat by Pulse 95 Oximetry 09/15/18 09/15/18 10:44 12:02 Temperature 98.1 F Pulse Rate 95 Respiratory 20 16 Rate Blood Pressure 152/71 (mmHg) O2 Sat by Pulse 97 Oximetry Oxygen Devices in Use Now: None Result Diagrams: 09/15/18 05:20 09/14/18 05:10 Assess/Plan/Problems-Billing Assessment: Patient is a 63yo male with a PMH for ANKUR, HTN who is S/P RTKA and is doing well. - Patient Problems (1) Post-operative state Current Visit: Yes Status: Acute Code(s): Z98.890 - OTHER SPECIFIED POSTPROCEDURAL STATES SNOMED Code(s): 81761699 Comment: - Operative course complicated by broken epidural needle, now resolved with no deficits - Pain better controlled, still needing high doses of morphine. - No BM bowel regimen - Urinating without difficulty (2) ANKUR (obstructive sleep apnea) Current Visit: Yes Status: Acute Code(s): G47.33 - OBSTRUCTIVE SLEEP APNEA ( ADULT) (PEDIATRIC) SNOMED Code(s): 37117241 Comment: - Continue CPAP (3) HTN (hypertension) Current Visit: Yes Status: Acute Code(s): I10 - ESSENTIAL (PRIMARY) HYPERTENSION SNOMED Code(s): 95781493 Comment: - Slightly hypertensive, resume clonidine and amlodipine. (4) BPH (benign prostatic hyperplasia) Current Visit: Yes Status: Acute Code(s): N40.0 - BENIGN PROSTATIC HYPERPLASIA WITHOUT LOWER URINRY TRACT SYMP SNOMED Code(s): 404355073 Comment: - Urinating without difficulty after leyva removal - Continue flomax. (5) DVT prophylaxis Current Visit: Yes Status: Acute Code(s): SYH5814 - SNOMED Code(s): 786198734 Comment: - Lovenox to warfarin per ortho. Status and Disposition: Per Ortho, hopeful D/C tomorrow.
[2018-09-15] MEDS ORDERED: Warfarin TAB(*) 4 MG PO ONE (17:00)
[2018-09-15] MEDS: amLODIPine TAB* 5 MG PO SCH (17:56)
[2018-09-15] MEDS: Atorvastatin* 10 MG TAB PO SCH (17:56)
[2018-09-15] MEDS: traZODone TAB* 50 MG TAB PO SCH (21:38)
[2018-09-15] MEDS: Tamsulosin CAP* 0.4 MG PO SCH (21:38)
[2018-09-15] MEDS: Morphine TAB Extended Release (*) 15 MG TAB.ER PO SCH (21:38)
[2018-09-16 05:29] LABS: Hematocrit 36 % (42-52); Mean Platelet Volume 7.4 fL (7.4-10.4); Platelet Count 181 10^3/ul (150-450)
[2018-09-16 05:32] LABS: INR 1.63 (0.77-1.02)
[2018-09-16] MEDS: cloNIDine TAB* 0.1 MG PO SCH (08:41)
[2018-09-16] MEDS: Docusate CAP* 100 MG PO SCH (08:41)
[2018-09-16] MEDS: Enoxaparin(*) 40 MG/0.4 ML SYR SUBCUT SCH (08:41)
[2018-09-16] MEDS: Morphine TAB Extended Release (*) 15 MG TAB.ER PO SCH (08:42)
[2018-09-16] MEDS: Fluticasone NASAL SPRAY 50MCG* 16 gm SPRAY BTL BOTH NARES SCH (08:42)
[2018-09-16] MEDS: Magnesium Hydroxide LIQ* 30 ML UDC PO SCH (08:42)
[2018-09-16] MEDS: CMCS: Olopatadine 0.1% OPHTH (NF) 1 DROP BTL BOTH EYES SCH (08:43)
[2018-09-16] MEDS: Venlafaxine EXT RELEASE CAP* 37.5 MG PO SCH (08:44)
--- NOTE | 2018-09-16 11:43 | PN ---
Progress Note - Progress Note Date of Service: 09/16/18 SOAP: Subjective: Pt is doing well. Denies F/C, CP/SOB or calf pain. Doing well with PT. Objective: PE- 63y/o WDWN M NAD RLE- dressing changed, inc c/d/i, calf soft NT, +DF/PF ankle, NVI Vital Signs Temp Pulse Resp BP Pulse Ox 99.4 F 105 18 145/66 96 09/16/18 07:21 09/16/18 07:21 09/16/18 08:42 09/16/18 07:21 09/16/18 08:00 Laboratory Results - last 24 hr 09/16/18 09/16/18 04:58 04:58 Hgb 12.0 L Hct 36 L Plt Count 181 MPV 7.4 INR (Anticoag Therapy) 1.63 H Assessment: []s/p Right total knee arthroplasty POD #3 Plan: []Cont PT/OT- WBAT Coumadin with Lovenox bridge Morphine sulfate ER 15 mg bid started for pain control Oral Benadryl for itching DC home today Follow up with Dr. Russell as scheduled 10-14 days
[2018-09-16 11:58] VITALS: BP 128/67
--- NOTE | 2018-09-21 02:16 | DS ---
DISCHARGE SUMMARY: DATE OF ADMISSION: 09/13/18 DATE OF DISCHARGE: 09/16/18 PROVIDER: Dr. Natalie Russell.* (DICTATED BY CLOVIS JAEGER) ADMITTING DIAGNOSIS: Status post right total knee arthroplasty. SECONDARY DIAGNOSES: 1. Sleep apnea. 2. High cholesterol. 3. Anxiety. 4. Hypertension. CONSULTATION: PT/OT, Medicine. HISTORY OF PRESENT ILLNESS: Mr. Townsend is a 63-year-old gentleman with complaints of right knee pain due to severe osteoarthritis. He failed conservative treatment and therefore agreed to undergo right total knee arthroplasty with Dr. Russell on 09/13/18. HOSPITAL COURSE: The patient was admitted to [facility] on . He underwent a right total knee arthroplasty. Postoperatively, he recovered on the short-stay surgical unit. Postop day #1, his [place] was removed. He was able to urinate on his own. He was advanced to regular diet without difficulty and his pain was controlled with oral Percocet and a long- acting morphine and he was restarted on home medications. Labs and vitals remained stable. He is able to weight bear as tolerated on left lower extremity. He advanced appropriately with PT and OT. DVT prophylaxis was managed with Lovenox and Coumadin until he reached therapeutic INR. By postop day 3, he was orthopedically and medically stable to discharge to home with outpatient physical therapy and lab draws. PHYSICAL EXAMINATION: General: He is a 63-year-old, well-developed, well- nourished male, in no acute distress. Alert and oriented x3. Appropriate mood and affect. Right lower extremity dressing changed. Skin is clean, dry, and intact. Well-healed surgical incision with no signs of infection. Calf is soft and nontender. Able to dorsiflex and plantar flex the ankle, +2 DP pulse. Sensation intact to light touch distally. DISCHARGE CONDITION: Stable. DISCHARGE MEDICATIONS: Home medications continued on discharge to include: 1. Trazodone 50 mg by mouth at bedtime. 2. Olopatadine 1 drop both eyes in the morning. 3. Nasonex 50 mcg in the morning. 4. Ibuprofen 200 mg by mouth daily as needed, which he knows not to take while on Coumadin. 5. Eliza 180 mg by mouth daily as needed. 6. Clonidine 0.1 mg 1 by mouth twice a day. 7. Aspirin 81 mg 1 by mouth daily, not while on Coumadin. 8. Flomax 0.4 mg by mouth at bedtime. 9. Amlodipine besylate 2.5 mg in the evening. 10. Magnesium 1 tab in the morning. 11. Vitamin B12 1 tab in the morning. 12. Fish oil 1000 mg 1 tab in the morning. 13. Effexor 37.5 mg 1 by mouth in the morning. 14. Lovastatin 40 mg by mouth in the evening. 15. Tylenol 500 mg daily as needed for pain. New medications on discharge to include: 1. Flexeril 10 mg by mouth 3 times a day as needed. 2. Colace 100 mg 1 by mouth 3 times a day. 3. Lovenox 40 mg subcu every 24 hours until therapeutic. 4. Morphine extended release 15 mg 1 by mouth every 12 hours x7 days for pain. 5. Oxycodone 5/325 one or two every 4 to 6 hours, MDD of 12. 6. Coumadin 2 mg tablet 1 to 5 by mouth every evening as directed by doctor. DISCHARGE INSTRUCTIONS: The patient is weightbearing as tolerated on the right lower extremity. It is okay for him to shower postop day 3. No bathing, swimming, or submerging of the wound. He is to use gentle soap, to pat dry, cover with gauze, Cameron wrap and tape, daily dressing changes. Call orthopedic office with increased drainage, redness, increased pain, or fever. Go to the ER with shortness of breath or chest pain. A regular diet with increased fluids and fiber to prevent constipation. Continue to use stool softeners. Call the office if no bowel movements within 48 hours. Outpatient PT and labs draws for INR, Monday and . Coumadin dose on 09/16/18 is 8 mg, on , redraw. He should not take ibuprofen or aspirin while on Coumadin. Lovenox injection 1 daily until he is therapeutic on the Coumadin until stopped by the office. Percocet 5/325 one to two every 4 to 6 hours for pain with a maximum of 12 a day, as well as morphine sulfate one by mouth every 12 hours for 7 days for pain. It is okay for him to use over-the- counter Benadryl if the pain medication causes itching. He should take Flexeril 10 mg every 8 hours as needed for muscle spasm or pain and Colace as needed for constipation. He will require antibiotics prior to any dental work in the future and follow up with Dr. Russell in 10 to 14 days. He may call the office with any questions, concerns, or to make the appointment. CLOVIS JAEGER [id number]/[facility] #: [id number] [place]
== END 2018-09-16 13:41 | disposition home health service (06) | DRG 302 ==
LOC: AA 05:57 → SSU 11:33
PROVIDERS: ADMIT Orthopaedic Surgery Adult Reconstructive Orthopaedic Surgery; ATTEND Orthopaedic Surgery Adult Reconstructive Orthopaedic Surgery
PROC: 00CU0ZZ Extirpation of Matter from Spinal Canal, Open Approach (ICD-10-PCS; 2018-09-13)
PROC: 0SRC069 Replacement of Right Knee Joint with Oxidized Zirconium on Polyethylene Synthetic Substitute, Cemented, Open Approach (ICD-10-PCS; principal; 2018-09-13 07:45)
DX: M17.11 Unilateral primary osteoarthritis, right knee (principal); T85.610A Breakdown (mechanical) of cranial or spinal infusion catheter, initial encounter; F41.9 Anxiety disorder, unspecified; I10 Essential (primary) hypertension; G47.33 Obstructive sleep apnea (adult) (pediatric); E78.5 Hyperlipidemia, unspecified; M25.761 Osteophyte, right knee; N40.0 Benign prostatic hyperplasia without lower urinary tract symptoms; Z79.82 Long term (current) use of aspirin; Z79.899 Other long term (current) drug therapy; Z88.8 Allergy status to other drugs, medicaments and biological substances; Z80.6 Family history of leukemia; Z80.52 Family history of malignant neoplasm of bladder; Z80.3 Family history of malignant neoplasm of breast; X58.XXXA Exposure to other specified factors, initial encounter; Y92.234 Operating room of hospital as the place of occurrence of the external cause
CPT/HCPCS: 36415; 76000; 80048; 85014; 85018; 85049; 85610; 88305; 88311; A9270-GY; C1776; J0690; J1100; J1650; J2270; J2405; J3010

== ENCOUNTER 2018-12-15 09:17 | Emergency (ER) | payer BC ==
[2018-12-15 09:25] VITALS: BP 163/79
--- OUTSIDE RECORDS SUMMARY | 2018-12-15 09:25 | XMS REPORT | Continuity of Care Document ---
:1955 External Reference #:[id number] Author Name Yessi Rutherford Care Team Providers Name Role Phone David Perry DO Primary Care Physician Unavailable Payers Date Identification Numbers Payment Provider Subscriber Policy Number: [id number] [employer] Jennifer Townsend PayID: [id number] [address] [address] [place] [address] Advance Directives Description No Information Available Problems Date Description Provider Status Onset: 11/07/2017 Obstructive sleep apnea syndrome Ivette Natarajan DNP, FELIX, Active NURSERY TECHNICIAN-BC Onset: 06/04/2018 Localized, primary osteoarthritis Natalie Russell M.D. Active Onset: 07/10/2018 Periodic limb movement disorder Ivette Natarajan DNP, FELIX, Active NURSERY TECHNICIAN-BC Onset: 07/10/2018 Malaise and fatigue Ivette Natarajan DNP, RN, Active NURSERY TECHNICIAN-BC Onset: 10/26/2018 Arthroplasty of knee Natalie Russell M.D. 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 [employer] Tobacco Use Start: Unknown Never Smoked Cigarettes Smoking Status Reviewed: 12/07/18 Never Smoked Cigarettes ETOH Use Denies alcohol use Tobacco Use Start: Unknown Patient has never smoked Recreational Drug Use Denies Drug Use Exercise Type/Frequency Exercises sporadically Allergies, Adverse Reactions, Alerts Date Description Reaction Status Severity Comments 09/06/2017 Pin Worm Medication Active Medications Medication Date Status Form Strength Qnty SIG Indications Ordering Provider Amlodipine Active Tablets 2.5mg 1 by mouth Unknown Besylate every day Fish Oil Active Capsules 1000mg 1 by mouth Unknown /0000 daily Trazodone HCL Active Tablets 50mg 1 tablet Unknown /0000 at bedtime every night Nasonex Active Suspension 50mcg/Act use two sprays in each nostril once daily Venlafaxine HCL Active Caps ER 37.5mg once daily Unknown ER / 24HR Clonidine HCL Active Tablets 0.1mg 1 by mouth Unknown twice a day Lovastatin Active Tablets 40mg take one tablet by mouth at bedtime Aspir-[address] 81mg 1 by mouth Unknown / every day Multiple Vitamin Active Tablets 1 by mouth Unknown Plus Lycopene every other day Vitamin B12 Active Tablets 500mg 1 by mouth Unknown / two times per day Olopatadine HCL Active 1 drop Unknown / each eye twice a day Tamsulosin HCL Active Capsules 0.4mg 1 by mouth Unknown / every day Keflex 09/28 Hx Capsules 500mg 21cap By mouth M17.11 Natalie s every 8 Drew, - hours x 7 M.D. Lovenox 09/16 Hx Solution 40mg/0.4M 14inj 1- 40 mg Natalie L injection Drew, - subcutaneo M.D. 10/25 usly daily until directed otherwise. please dispense appropriat e amount. Coumadin 09/16 Hx Tablets 2mg 30tab take 1-5 Natalie s tabs by Drew, - mouth M.D. 10/25 daily directed by doctor Cyclobenzaprine 09/15 Hx Tablets 10mg 90tab take 1 tab Natalie s three Drew, - times a M.D. 12/06 day needed for pain/muscl e spasms [facility] Stool 09/15 Hx Capsules 100mg 30cap take 1 by Natalie Softener s mouth Drew, - three M.D. 10/30 times a /2019 day for constipati on Oxycodone-Acetam 09/15 Hx Tablets 5-325mg 80tab 1-2 tabs Z96.651 Natalie ino s by mouth Drew, - every 4-6 M.D. 12/06 hours needed for pain. Morphine Sulfate 09/15 Hx Tablets ER 15mg 14tab 1 tablet Z96.651 Natalie ER s by mouth Drew, - twice a M.D. 10/02 day x days post op. pt has been taking with percocet in hosp and tolerating well s/p tka Magnesium 11/07 Hx Capsules 500mg 1 tab by Ivette /2018 mouth Natarajan, - every DNP, RN, 10/30 other day. NURSERY TECHNICIAN- 400 mg per pt 01/08/18. Vitamin B Hx Tablets 100mg 1 by mouth Unknown Complex /0000 every day - 09/05 Patanol Hx Solution 0.1% one drop Unknown /0000 each eye - twice a Fexofenadine HCL Hx Tablets 180mg once daily Unknown /0000 - 09/05 Acetaminophen Hx Capsules 500mg 1 po daily Unknown /0000 as needed - 06/03 Ibuprofen Hx Capsules 200mg as needed Unknown /0000 - 06/03 Kaopectate Hx Tablets As Unknown /0000 directed, - as needed 06/03 Fexofenadine HCL Hx Tablets 180mg 30tab 1 tab by Unknown /0000 s mouth - every day 06/03 in the morning prn Famotidine Hx Tablets 20mg 1 by mouth Unknown /0000 every day - as needed 06/03 Lidocaine Hx Gel Patches 4% apply Unknown /0000 patch up - to 10/30 hours a day. Immunizations Description No Information Available Vital Signs Date Vital Result Comment 12/07/2018 8:09am Height 74 inches 6'2" Heart Rate 80 /min BP Systolic 132 mmHg BP Diastolic 70 mmHg Respiratory Rate 18 /min Body Temperature 97.1 F Pain Level 1 10/31/2018 8:21am Height 74 inches 6'2" Weight 221.25 lb Heart Rate 106 /min BP Systolic Sitting 126 mmHg Lue large cuff BP Diastolic Sitting 60 mmHg Lue large cuff Respiratory Rate 18 /min O2 % BldC Oximetry 96 % On Ra BMI (Body Mass Index) 28.4 kg/m2 10/26/2018 8:17am Height 74 inches 6'2" Weight 230.00 lb BP Systolic 128 mmHg BP Diastolic 66 mmHg Body Temperature 97.9 F BMI (Body Mass Index) 29.5 kg/m2 10/03/2018 11:29am Height 74 inches 6'2" Weight 228.00 lb BP Systolic 116 mmHg BP Diastolic 70 mmHg Body Temperature 97.7 F BMI (Body Mass Index) 29.3 kg/m2 09/28/2018 8:54am Height 74 inches 6'2" Weight 228.00 lb BP Systolic 136 mmHg BP Diastolic 82 mmHg Body Temperature 98.5 F BMI (Body Mass Index) 29.3 kg/m2 09/07/2018 9:15am Height 74 inches 6'2" Weight [...] Test Result H/L Range Note Laboratory test 10/31/2018 [facility] Ferritin 295.3 ng/mL N 24-[address] [place] [address] [phone] Vitamin B12 590 pg/mL N 180-914 1 Magnesium 2.0 mg/dL N 1.9-2.7 CBC Auto Diff 09/07/2018 [facility] White Blood 5.8 10^3/uL N 3.5-10.[address] [place] [address] [phone] Red Blood Count 4.75 10^6/uL N 4.00-5.40 Hemoglobin 14.6 g/dL N 14.0-18.0 Hematocrit 43 % N 42-52 Mean Corpuscular Volume 91 fL N 80-94 Mean Corpuscular Hemoglobin 31 pg N 27-31 Mean Corpuscular HGB Conc 34 g/dL N 31-36 Red Cell Distribution Width 14 % N 10.5-15 Platelet Count 242 10^3/uL N 150-450 Mean Platelet Volume 7.4 fL N 7.4-10.4 Abs Neutrophils 3.8 10^3/uL N 1.5-7.7 Abs Lymphocytes 1.1 10^3/uL N 1.0-4.8 Abs Monocytes 0.6 10^3/uL N 0-0.8 Abs Eosinophils 0.3 10^3/uL N 0-0.6 Abs Basophils 0 10^3/uL N 0-0.2 Abs Nucleated RBC 0 10^3/uL Granulocyte % 64.6 % Lymphocyte % 19.2 % Monocyte % 10.4 % Eosinophil % 5.0 % Basophil % 0.8 % Nucleated Red Blood Cells % 0 Urine Culture And 09/07/2018 [facility] Urine Culture SEE RESULT [address] [place] [address] [phone] Type & Screen 09/07/2018 [facility] Patient Blood O Positive [address] [place] [address] [phone] Antibody Screen NEGATIVE Inr/Protime 09/07/2018 [facility] Inr 0.96 N 0.77-1.[address] [place] [address] [phone] Laboratory test 09/07/2018 [facility] Partial 31.5 seconds N 26.0-36.[address] [place] [address] PTT [phone] Urinalysis 09/07/2018 [facility] Urine Color Yellow Profile [address] [place] [address] [phone] Urine Appearance Clear Urine Specific [place] 1.018 N 1.010-1.030 Urine pH 7.0 N 5-9 Urine Urobilinogen Negative Negative Urine Ketones Negative Negative Urine Protein Negative Negative Urine Leukocytes Negative Negative Urine Blood Negative Negative * * Abnormal Negative 3 Urine Nitrite Negative Negative Urine Bilirubin Negative Negative Urine Glucose Negative Negative Basic Metabolic Panel 09/07/2018 [facility] Sodium 139 mmol/L N 135-[address] [place] [address] [phone] Potassium 4.9 mmol/L N 3.5-5.0 Chloride 102 mmol/L N 101-111 Co2 Carbon Dioxide 32 mmol/L N 22-32 Anion Gap 5 mmol/L N 2-11 Glucose 96 mg/dL N 70-100 Blood Urea Nitrogen 19 mg/dL N 6-24 Creatinine 1.11 mg/dL N 0.67-1.17 BUN/Creatinine Ratio 17.1 N 8-20 Calcium 9.7 mg/dL N 8.6-10.3 Egfr Non- 66.7 >60 Egfr 80.7 >60 4 Laboratory test 08/03/2018 [facility] Phosphorus 3.2 mg/dL N 2.5-5.[address] [place] [address] [phone] Magnesium 2.1 mg/dL N 1.9-2.7 TSH (Thyroid Stim Horm) 1.85 mcIU/mL N 0.34-5.60 Vitamin B12 635 pg/mL N 180-914 5 Lipid Profile 08/03/2018 [facility] Triglycerides 53 mg/dL 6 (Trig/Chol/HDL) [address] [place] [address] [phone] Cholesterol 165 mg/dL 7 HDL Cholesterol 57.7 mg/dL 8 LDL Cholesterol 97 mg/dL 9 Comp Metabolic Panel 08/03/2018 [facility] Sodium 140 mmol/L N 135-[address] [place] [address] [phone] Potassium 4.9 mmol/L N 3.5-5.0 Chloride 104 [...] Egfr Non- 68.8 >60 Egfr 83.3 >60 10 CBC Auto Diff 08/03/2018 [facility] White Blood 5.5 10^3/uL N 3.5-10.[address] [place] [address] [phone] Red Blood Count 4.58 10^6/uL N 4.00-5.40 [...] Blood Cells % 0.1 1,25 Dihydroxy 08/03/2018 [facility] Calcitriol 38 pg/mL 18- 64 11 Vitamin D [address] [place] [address] [phone] Vitamin D 1,25 08/03/2018 [facility] Vitamin D Total 25.3 ng/mL N 20-50 And Vitamin D,2 [address] [facility] [address] [place] [address] [phone] Iron & Iron 08/03/2018 [facility] Iron 132 g/dL N 50-212 Binding [address] [facility] [place] [address] [phone] Unsaturated Iron Binding < 335 g/dL Total Iron Binding Capacity 350 g/dL N 250-450 Transferrin 250 mg/dL N 203-362 % Iron Saturation 38 % N 15-55 Laboratory test 08/03/2018 [facility] Ferritin 186.8 ng/mL N 24-336 finding [address] [place] [address] [phone] 1 Normal Range 180 to 914 Indeterminate Range 145 to 180 Deficient Range <145 2 SEE RESULT BELOW Name: JENNIFER TOWNSEND : [address]: Natalie Russell MD Acct: [id number] Unit: [id number] AGE: 63 Location: [facility] Re09/07/18 SEX: M Status: REG REF SPEC: [id number] DEEJAY: 09/07/18-[address]: Natalie Russell MD REQ: [id number] RECD: 09/07/18 STATUS: ERON DEL CID DR: Ivette Perry DO _ SOURCE: URINE SPDESC: ORDERED: Urine Culture QUERIES: Urine Source: Clean Catch Procedure Result Reported Site Urine Culture Final 09/08/18- 1219 ML No Growth (<1,000 CFU/mL) * ML - Main Lab . END OF REPORT DEPARTMENT OF PATHOLOGY, [address] [place] [address] Neal Albarado M.D. Director [facility] # [id number] 3 *Ascorbic acid is present which may interfere with detection of blood. 4 Because ethnic data is not always readily [...] 15-29 5 Kidney failure <15 (or dialysis) 5 Normal Range 180 to 914 Indeterminate Range 145 to 180 Deficient Range <145 6 Desirable: <150 Borderline High: 150-199 High: 200-499 Very High: >500 7 Desirable: <200 Borderline High: 200-239 High: >239 8 Low: <40 Desirable: 40-60 High: >60 9 Desirable: <100 Near Optimal: 100-129 Borderline High: 130-159 High: 160-189 Very High: >189 10 Because ethnic data is not always readily [...] 15-29 5 Kidney failure <15 (or dialysis) 11 ADDITIONAL INFORMATION This test was developed and its performance characteristics determined by [facility] in a manner consistent with CLIA requirements. This test has not been cleared or approved by the U.S. Food and Drug Administration. Test Performed by: [facility] [address] [place] [address] Procedures Date Code Description Status 09/13/2018 28295 TKR Total Knee Replacement Completed 09/13/2018 45227 TKR Total Knee Replacement Completed 09/13/2018 64848 Remove Foreign Body Muscle/Tendon Sheath Deep/Complicated Completed 06/19/2018 66254 Polysomnography Sleep Staging 4+ Parameters W/Cpap Completed 09/15/2017 37329 Sleep Study Unattended,HRT Rate,Oxygen Sat,Resp Completed Effort/Airflow Encounters Type Date Location Provider Dx Diagnosis Office Visit 10/31/2018 Pulmonology And Ivette Natarajan, G47.33 Obstructive sleep 8:15a [facility], NURSERY TECHNICIAN- apnea (adult) [employer] (pediatric) G47.61 Periodic limb movement disorder R53.83 Other fatigue Office Visit 09/15/2018 10:22a [place] Nishi Garcia [employer] (primary) Hospitalists hypertension G47.33 Obstructive sleep apnea (adult) (pediatric) N40.0 Benign prostatic hyperplasia without lower urinry tract symp Z96.651 Presence of right artificial knee joint Office Visit 09/14/2018 10:22a [place] Nishi Francis [facility] (primary) Hospitalists hypertension G47.33 Obstructive sleep apnea (adult) (pediatric) N40.0 Benign prostatic hyperplasia without lower urinry tract symp Z96.651 Presence of right artificial knee joint Office Visit 09/13/2018 10:21a [place] [facility] Ariella [employer] [facility] IBIS Castañeda (primary) Hospitalists hypertension E78.5 Hyperlipidemia, unspecified F41.9 Anxiety disorder, unspecified N40.0 Benign prostatic hyperplasia without lower urinry tract symp Z96.651 Presence of right artificial knee joint Office Visit 07/10/2018 Pulmonology And Ivette G47.33 Obstructive sleep 9:00a [facility] Natarajna RN, apnea (adult) [facility] WILL-BC (pediatric) G47.61 Periodic limb movement disorder R53.83 Other fatigue Office Visit 06/04/2018 9:00a [facility] Natalie Russell, M25.561 Pain in right Of [facility] M.D. knee M25.562 Pain in left knee M25.461 Effusion, right knee M25.462 Effusion, left knee M17.0 Bilateral primary osteoarthritis of knee Office Visit 04/05/2018 Pulmonology And Ivette G47.33 Obstructive sleep 1:30p [facility] Natarajan RN, apnea (adult) [facility] NURSERY TECHNICIAN-BC (pediatric) G25.81 Restless legs syndrome G47.14 Hypersomnia due to medical condition Office Visit 01/08/2018 Pulmonology And Ivette G47.33 Obstructive sleep 8:15a [facility] Natarajan RN, apnea (adult) [facility] NURSERY TECHNICIAN-BC (pediatric) R09.02 Hypoxemia Office Visit 11/07/2017 Pulmonology And Ivette G47.33 Obstructive sleep 8:15a [facility] Natarajan RN, apnea (adult) [facility] NURSERY TECHNICIAN-BC (pediatric) Office Visit 09/06/2017 Pulmonology And Eileen Espino, R06.83 Snoring 9:30a [facility] [place] R40.0 Somnolence G25.81 Restless legs syndrome 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 at [facility]01/30/2019 9:15 am - Ivette Natarajan DNP, RN, NURSERY TECHNICIAN-BC at [facility]12/07/2018 Micaela Russell M.D.Z96.651 Presence of right artificial knee jointFollow up:Follow up: 2 ocxlhmN78.561 Pain in right kneeM25.461 Effusion, right kneeM17.11 Unilateral primary osteoarthritis, right kneeNew Therapy:Physical Therapy
--- NOTE | 2018-12-15 09:40 | UC ---
Epistaxis Nasal HPI - HPI Summary HPI Summary: 63-year-old male comes in with a chief complaint of nosebleed. Patient was using and that he brought this morning and had sudden onset of left-sided nosebleed. The bleeding has decreased with laying down and squeezing his nose. Patient is not on any blood thinners. He does have a history of sinus problems and uses sinus nasal sprays. He rarely has nosebleeds. Does not feel lightheaded. No sinusitis symptoms recently. - History of Current Complaint Chief Complaint: UCGeneralIllness Stated Complaint: NOSE BLEED Time Seen by Provider: 12/15/18 09:22 Pain Intensity: 0 - Allergies/Home Medications Allergies/Adverse Reactions: Allergies Allergy/AdvReac Type Severity Reaction Status Date / Time pin worm medication Allergy Hives Uncoded 12/15/18 09:23 Home Medications: Home Medications Cyclobenzaprine TAB* [Flexeril 10 MG TAB*] 10 mg PO 12/15/18 [History] Ibuprofen TAB* [Advil TAB*] 400 mg PO PRN 12/15/18 [History] PMH/Surg Hx/FS Hx/Imm Hx Previously Healthy: Yes Cardiovascular History: Hypertension - Surgical History Surgical History: Yes Surgery Procedure, Year, and Place: right knee arthroscopy, 2004, , right TKR 09/2018 - Family History Known Family History: Positive: Non-Contributory - Social History Alcohol Use: None Substance Use Type: None Smoking Status (MU): Never Smoked Tobacco Have You Smoked in the Last Year: No - Immunization History Most Recent Influenza Vaccination: 2018 Most Recent Pneumonia Vaccination: utd Review of Systems All Other Systems Reviewed And Are Negative: Yes Constitutional: Positive: Negative Skin: Positive: Negative Eyes: Positive: Negative ENT: Positive: Epistaxis Respiratory: Positive: Negative Cardiovascular: Positive: Negative Gastrointestinal: Positive: Negative Motor: Positive: Negative Neurovascular: Positive: Negative Musculoskeletal: Positive: Negative Neurological: Positive: Negative Psychological: Positive: Negative Is Patient Immunocompromised?: No Physical Exam Triage Information Reviewed: Yes Appearance: Well-Appearing, No Pain Distress, Well-Nourished Vital Signs: Initial Vital Signs Temp 97.5 F 12/15/18 09:20 Pulse 79 12/15/18 09:20 Resp 18 12/15/18 09:20 BP 163/79 12/15/18 09:20 Pulse Ox 96 12/15/18 09:20 Vital Signs Reviewed: Yes Eye Exam: Normal Eyes: Positive: Conjunctiva Clear ENT: Positive: Pharynx normal. Negative: Nasal drainage - NO BLOOD SEEN IN NARES OR BACK OF THROAT. SITE OF BLEEDING NOT IDENTIFIED. Neck exam: Normal Neck: Positive: Supple Respiratory: Positive: Lungs clear, Normal breath sounds, No respiratory distress Cardiovascular: Positive: RRR Musculoskeletal Exam: Normal Musculoskeletal: Positive: Strength Intact, ROM Intact Neurological Exam: Normal Neurological: Positive: Alert, Muscle Tone Normal Psychological Exam: Normal Psychological: Positive: Normal Response To Family, Age Appropriate Behavior Skin Exam: Normal Epistaxis Nasal Course/Dx - Course Course Of Treatment: After direct pressure by squeezing the nose with a nose clip for approximately 15 minutes patient had no further bleeding. When I examine him I did not see any blood the back of his throat or in his nostrils. It did not see the source of the bleeding. Patient tells me was on the left side. Overall we discussed not using the neck T pot for a while. Keeping the nares moist and using some Vaseline. I gave him the up-to-date epistaxis information for patient's handout. Patient will get reevaluated if anything gets worse. Can also follow- up with ENT as needed. - Differential Dx/Diagnosis Provider Diagnosis: Epistaxis Discharge - Sign-Out/Discharge Documenting (check all that apply): Patient Departure All imaging exams completed and their final reports reviewed: No Studies - Discharge Plan Condition: Stable Disposition: HOME Patient Education Materials: Nosebleed (ED) Referrals: David Perry DO [Primary Care Provider] - James Flanagan MD [Medical Doctor] - Additional Instructions: FOLLOW UP WITH ENT IF NOT COMPLETELY IMPROVED. GET REEVALUATED SOONER FOR WORSENING OF YOUR CONDITION OR QUESTIONS OR CONCERNS. - Billing Disposition and Condition Condition: STABLE Disposition: Home
== END 2018-12-15 10:38 | disposition home or self-care (01) ==
LOC: UCEAST 09:17
DX: R04.0 Epistaxis (principal); I10 Essential (primary) hypertension
CPT/HCPCS: 99212; G0463

== ENCOUNTER 2019-10-15 09:00 | Observation (INO) | payer BC ==
--- NOTE | 2019-10-03 09:48 | HP ---
AMENDED REPORT NOW INCLUDES DESIGNATED COSIGNER - ESIGNED BEFORE ADJUSTMENT HISTORY AND PHYSICAL: DATE OF ADMISSION/SURGERY: 10/15/19 DATE OF OFFICE VISIT: 09/30/19 SURGEON: Natalie Russell MD * (DICTATED BY CLOVIS TABARES) PROCEDURE: Left total knee arthroplasty. CHIEF COMPLAINT: Left knee pain. HISTORY OF PRESENT ILLNESS: Mr. Townsend is a 64-year-old gentleman with end- stage osteoarthritis of the left knee. He has failed conservative treatment and elected to proceed with a left total knee arthroplasty. PAST MEDICAL HISTORY: Hypertension, high cholesterol, depression, anxiety, and sleep apnea. PAST SURGICAL HISTORY: Right total knee arthroplasty, right knee arthroscopy, right foot surgery, and a lumbar surgery. CURRENT MEDICATIONS: 1. Amlodipine 2.5 mg daily. 2. Fish oil. 3. Trazodone 50 mg at bedtime. 4. Nasonex daily. 5. Venlafaxine 37.5 mg daily. 6. Clonidine 0.1 mg twice a day. 7. Lovastatin 40 mg at bedtime. 8. Multivitamin. 9. Vitamin B12. 10. Olopatadine 1 drop in each eye daily. 11. Tamsulosin 0.4 mg daily. 12. Magnesium 500 mg half a tablet every day. ALLERGIES: PINWORM MEDICATION. FAMILY HISTORY: Diabetes, coronary artery disease, and cancer. SOCIAL HISTORY: He is a 64-year-old gentleman, lives with his . He does not smoke or use drugs. REVIEW OF SYSTEMS: A complete 14-point review of systems was reviewed with the patient and it was all negative or noncontributory. He denies history of DVT, PE, hepatitis, HIV or anesthesia problems. PHYSICAL EXAMINATION GENERAL: He is well developed, well nourished, in no acute distress. VITAL SIGNS: He stands 74 inches tall, he is 234 pounds, his blood pressure 128 /62, his heart rate is 85. HEENT: Normocephalic, atraumatic. NECK: Supple. No palpable lymph nodes. PULMONARY: The lungs are clear to auscultation bilaterally. CARDIO: Regular rate and rhythm. Strong S1 and S2. ABDOMEN: Soft, nontender, nondistended. NEUROLOGICAL: He is alert and oriented x3. MUSCULOSKELETAL: Left lower extremity: The skin is intact. There are no open wounds or abrasions. There is a moderate effusion of the left knee joint, some tenderness along the medial and lateral joint line. There is a 17-degree valgus deformity with no passive correction. Range of motion is 10 to 90 degrees. He is able to dorsiflex and plantar flex. He has a 2+ dorsalis pedis pulse and intact sensation. ASSESSMENT AND PLAN: Mr. Townsend is a 64-year-old gentleman with severe end- stage osteoarthritis of the left knee. He has failed conservative treatment and elected to proceed with a left total knee arthroplasty. The surgery is scheduled 10/15/[address] Russell discussed the risks and benefits of the surgery at today's visit and all of his questions were answered. He will follow up with Dr. Russell 2 weeks after the surgery. CLOVIS TABARES [id number]/[facility] #: [id number] KENDELL
[~2019-10-15 09:00] MED LIST changes: +Acetaminophen TAB* 325 MG PO ONE; -Buffered Lidocaine 0.9% SYRIN* 5 ML/SYR SYRINGE INTRADERM ONE; +Buffered Lidocaine 1% SYRIN* 1 ML/SYRINGE INTRADERM ONE; +Gabapentin CAP(*) 300 MG PO ONE; +Lactated Ringers 1000 ML Bag* 1,000 ML IV SCH; +celeCOXIB CAP* 200 MG PO ONE
--- OUTSIDE RECORDS SUMMARY | 2019-10-15 12:31 | XMS REPORT | Continuity of Care Document ---
:1955 External Reference #:[id number] Author Name David Perry D.O. Address [address] [place] [id number] Care Team Providers Name Role Phone [facility] - Care Team Information Hand Cultivator [phone] Gastroenterology Problems Active Problems Provider Date Pure hypercholesterolemia Jose Mercado M.D. Onset: 10/31/2005 Dysthymia Jose Mercado M.D. Onset: 10/31/2005 Panic disorder without agoraphobia Jose Mercado M.D. Onset: 02/24/2006 Obesity Jose Mercado M.D. Onset: 02/24/2006 Lipoma (clinical) Jose Mercado M.D. Onset: 06/08/2007 Insomnia Jose Mercado M.D. Onset: 12/14/2009 Chronic conjunctivitis Jose Mercado M.D. Onset: 10/31/2011 Chronic rhinitis Jose Mercado M.D. Onset: 10/31/2011 Essential hypertension David Perry D.O. Onset: 06/28/2017 Obstructive sleep apnea syndrome Mervat Moran MD Onset: 08/12/2019 Drug-induced constipation Mervat Moran MD Onset: 08/12/2019 Anxiety state Mervat Moran MD Onset: 08/12/2019 Social History Type Date Description Comments Sex Unknown Tobacco Use Reviewed: 04/04/18 Denies Cigarette Use Smoking Status Reviewed: 09/17/19 Denies Cigarette Use ETOH Use Denies alcohol use Tobacco Use Reviewed: 10/07/14 Patient has never smoked Recreational Drug Use Denies Drug Use Allergies, Adverse Reactions, Alerts Description No Known Drug Allergies Medications Active Medications SIG Qnty Indications Ordering Date Provider Multiple Vitamin 1 every day Unknown 09/16/2019 Plus Lycopene Tablets Magnesium daily (slow Unknown 09/16/2019 Chloride-Calcium release magnesium) 64-112mg Tablets Famotidine 1 tab/day as Unknown 08/11/2019 10mg needed for Tablets heartburn. Mometasone Furoate [place] Two Sprays 17units J30.2 David Perry, 2018 In One Nostril D.O. 50mcg/Act Suspension Every Day as Needed For Nasal Allergies Ponaris twice daily as Unknown 12/23/2018 Solution needed Olopatadine HCL Instill One Drop 10units H10.45 David Perry, 11/20/2018 0.1% Into Both Eyes Two D.O. Solution Times A Day For Allergy J30.2 Cyclobenzaprine HCL Take One Tablet Unknown 10/26/2018 10mg Tablets By Mouth Three Times A Day as Needed For Pain Muscle Spasms Tamsulosin HCL 1 by mouth every 90caps David Perry, 06/28/2018 0.4mg Capsules day D.O. Vitamin B12 2 by mouth every Unknown 12/26/2017 500mcg Tablets day Famotadine OTC as needed Unknown 12/26/2017 20mg Fish Oil 1 by mouth every Unknown 09/27/2017 1000mg Capsules day Amlodipine Besylate 1 by mouth every 90tabs I10 David Perry, 06/28/2017 2.5mg Tablets day D.O. Neti Pot daily OTC Jose Sanford 01/01/2015 Malka Mercado Trazodone HCL take one tablet 180tabs Mervat Moran, 04/29/2013 50mg Tablets by mouth at MD bedtime Venlafaxine HCL ER 1 tab every day 90caps F34.1 David Perry, 04/23/2012 37.5mg Caps ER (for mood) D.O. 24HR F41.0 Fexofenadine HCL 1 po qd in am otc 477.8 Jose Sanford 11/09/2009 180mg for allergy Malka Mercado Tablets relief as needed Clonidine HCL take 1 tablet in 180tabs David Perry, 11/09/2009 0.1mg Tablets the morning and D.O. one at bedtime Acetaminophen 1 po daily as Jose A. 06/08/2007 500mg Capsules needed Malka Mercado Lovastatin 1 every night 90tabs Z00.00 David Perry, 03/02/2006 40mg Tablets D.O. Ibuprofen as needed 100tabs Unknown 200mg Tablets Kaopectate as directed, as Unknown Caplet needed Medications Administered in Office Medication SIG Qnty Indications Ordering Provider Date injection, kenalog, 10 mg David Perry, D.O. 05/14/2018 Injection Immunizations CPT Code Status Date Vaccine Reaction Lot # [id number] Given 09/17/2019 Prevnar 13 [id number] 73250 Given 05/11/2019 Influenza Vaccine Split Virus Preservative Free Im Use (hi-dose) 20271 Given 03/28/2018 Shingrix Zoster (Shingles) [id number] Vaccine (HZV) Recomb,Subnit,Adjuvanted 08876 Given 12/27/2017 Shingrix Zoster (Shingles) [id number] Vaccine (HZV) Recomb,Subnit,Adjuvanted 72989 Given 04/17/2017 Influenza Virus Vaccine, [id number] Quadrivalent, Split, Preservative Free 26279 Given 06/01/2016 Influenza Virus Vaccine, [id number] Quadrivalent, Split, Preservative Free 01036 Given 06/02/2015 Flu, Split Virus 3Yrs 26295 Given 07/04/2014 Flu, Split Virus 3Yrs [id number] 43046 Given 06/17/2013 Flu, Split Virus 3Yrs [id number] 95291 Given 07/03/2012 Flu, Split Virus 3Yrs 39950 Given 06/16/2011 Zostavax [id number] 34933 Given 06/16/2011 Flu, Split Virus 3Yrs [id number] 08967 Given 12/13/2010 Adacel or Boostrix, TDaP [id number] 54234 Given 06/11/2010 Flu, Split Virus 3Yrs [id number] 29267 Given 06/23/2007 Flu, Split Virus 3Yrs [id number] 02776 Given 08/08/2006 Flu, Split Virus 3Yrs excessive insomnia onset that night happened once before in 2002 for 3 weeks after 27501 Given 10/31/2005 Td Immunization TD 142 42716 Given 08/11/2003 Flu, Split Virus 3Yrs Vital Signs Date Vital Result Comment 09/17/2019 11:30am BP Systolic 130 mmHg BP Diastolic 80 mmHg Heart Rate 56 /min O2 % BldC Oximetry 96 % Body Temperature 97.5 F Height 74.25 inches 6'2.25" Weight 235.00 lb BMI (Body Mass Index) 30.0 kg/m2 08/12/2019 12:55pm BP Systolic 128 mmHg BP Diastolic 78 mmHg Height 74.25 inches 6'2.25" w/sneakers Weight 234.00 lb w/sneakers BMI (Body Mass Index) 29.8 kg/m2 Results Test Acquired Date Facility Test Result H/L Range Note Laboratory test 09/30/2019 [facility] TSH 1.46 Normal 0.34-5.60 finding [phone] (Thyroid mcIU/mL Stim Horm) Magnesium 2.1 mg/dL Normal 1.9-2.7 Phosphorus 3.4 mg/dL Normal 2.5-5.0 Vitamin B12 641 pg/mL Normal 180-914 1 Lipid Profile (Trig/Chol/HDL) 09/30/2019 [facility] Triglycerides 92 mg /dL 2 [phone] Cholesterol 158 mg/dL 3 HDL Cholesterol 54.8 mg/dL 4 LDL Cholesterol 85 mg/dL 5 CBC Auto Diff 09/30/2019 [facility] White Blood 6.5 10^3/uL Normal 3.5-10.8 [phone] Count Red Blood Count 4.54 10^6/uL Normal 4.18-5.48 Hemoglobin 13.9 g/dL Low 14.0-18.0 Hematocrit 41 % Low 42-52 Mean Corpuscular Volume 91 fL Normal 80-94 Mean Corpuscular Hemoglobin 31 pg Normal 27-31 Mean Corpuscular HGB Conc 34 g/dL Normal 31-36 Red Cell Distribution Width 14 % Normal 10-15 Platelet Count 238 10^3/uL Normal 150-450 Mean Platelet Volume 7.5 fL Normal 7.4-10.4 Abs Neutrophils 4.4 10^3/uL Normal 1.5-7.7 Abs Lymphocytes 1.2 10^3/uL Normal 1.0-4.8 Abs Monocytes 0.6 10^3/uL Normal 0-0.8 Abs Eosinophils 0.3 10^3/uL Normal 0-0.6 Abs Basophils 0.0 10^3/uL Normal 0-0.2 Abs Nucleated RBC 0.0 10^3/uL Granulocyte % 67.3 % Lymphocyte % 18.6 % Monocyte % 9.3 % Eosinophil % 4.1 % Basophil % 0.7 % Nucleated Red Blood Cells % 0.0 Inr/Protime 09/30/2019 [facility] Inr 0.99 Normal 0.82-1.09 6 [phone] Laboratory test 09/30/2019 [facility] Partial 35.1 seconds Normal 26.0-38.0 finding [phone] Thrombo Time PTT Urinalysis 09/30/2019 [facility] Urine Color Yellow Profile [phone] Urine Appearance Clear Urine Specific Rosie 1.021 Normal 1.010-1.030 Urine pH 6.0 Normal 5-9 Urine Urobilinogen Negative Negative Urine Ketones Negative Negative Urine Protein Negative Negative Urine Leukocytes Negative Negative Urine Blood Negative Negative * * Abnormal Negative 7 Urine Nitrite Negative Negative Urine Bilirubin Negative Negative Urine Glucose Negative Negative Comp Metabolic Panel 09/30/2019 [facility] Sodium 137 mmol/L Normal 135-145 [phone] Potassium 4.9 mmol/L Normal 3.5-5.0 Chloride 101 mmol/L Normal 101-111 Co2 Carbon Dioxide 33 mmol/L High 22-32 Anion Gap 3 mmol/L Normal 2-11 Glucose 90 mg/dL Normal 70-100 Blood Urea Nitrogen 21 mg/dL Normal 6-24 Creatinine 1.18 mg/dL High 0.67-1.17 BUN/Creatinine Ratio 17.8 Normal 8-20 Calcium 9.9 mg/dL Normal 8.6-10.3 Total Protein 7.1 g/dL Normal 6.4-8.9 Albumin 4.6 g/dL Normal 3.2-5.2 Globulin 2.5 g/dL Normal 2-4 Albumin/Globulin Ratio 1.8 Normal 1-3 Total Bilirubin 0.50 mg/dL Normal 0.2-1.0 Alkaline Phosphatase 92 U/L Normal 34-104 Alt 22 U/L Normal 7-52 Ast 22 U/L Normal 13-39 Egfr Non- 62.0 >60 Egfr 75.0 >60 8 Type & Screen 09/30/2019 [facility] Patient Blood Type O Positive [phone] Antibody Screen NEGATIVE Urine Culture And 09/30/2019 [facility] Urine Culture SEE RESULT BELOW 9 Sensitivities [phone] 1 Normal Range 180 to 914 Indeterminate Range 145 to 180 Deficient Range <145 2 Desirable: <150 Borderline High: 150-199 High: 200-499 Very High: >500 3 Desirable: <200 Borderline High: 200-239 High: >239 4 Low: <40 Desirable: 40-60 High: >60 5 Desirable: <100 Near Optimal: 100-129 Borderline High: 130-159 High: 160-189 Very High: >189 6 Standard intensity warfarin therapeutic range: 2.0-3.0 High intensity warfarin therapeutic range: 2.5-3.5 7 *Ascorbic acid is present which may interfere with detection of blood. 8 Because ethnic data is not always readily [...] 15-29 5 Kidney failure <15 (or dialysis) 9 SEE RESULT BELOW Name: JENNIFER TRAN : [address]: Natalie Russell MD Acct: [id number] Unit: [id number] AGE: 64 Location: [facility] Re09/30/19 SEX: M Status: REG REF SPEC: [id number] DEEJAY: 09/30/19-[address] [facility] [address]: Natalie Russell MD REQ: [id number] RECD: 09/30/19-122 STATUS: ERON DEL CID DR: David Perry DO _ SOURCE: URINE SPDESC: ORDERED: Urine Culture QUERIES: Urine Source: Clean Catch Procedure Result Reported Site Urine Culture Final 10/01/19- 1139 ML No Growth (<1,000 CFU/mL) * ML - Main [facility] . END OF REPORT DEPARTMENT OF PATHOLOGY, [address] [place] [address] Neal Albarado M.D. Director [facility] # [id number] Procedures Date Code Description Status 09/17/2019 77153 Brief Emotional/Behav Assessment W/ Scoring Doc Per Completed Standard Inst 09/17/2019 74602 Electrocardiogram Complete Completed 08/16/2019 51168 Remove Impact Cerumen Irrigation/Lavage Unilateral Completed 03/05/2015 06125484 Colonoscopy Completed Medical Devices Description No Information Available Encounters Type Date Location Provider Dx Diagnosis Office Visit 09/17/2019 Main Office David Perry, M25.562 Pain in left knee 11:00a D.O. Z01.818 Encounter for other preprocedural examination I10 Essential (primary) hypertension K59.03 Drug induced constipation G47.00 Insomnia, unspecified G47.33 Obstructive sleep apnea (adult) (pediatric) E78.00 Pure hypercholesterolemia, unspecified Z23 Encounter for immunization Z41.8 Encntr for oth proc for purpose ot than [facility] Z68.30 Body mass index (BMI) 30.0-30.9, adult Office Visit 08/12/2019 12:55p Main Office Mervat Moran Z00.00 Encntr for general MD adult medical exam w/o abnormal findings I10 Essential (primary) hypertension K59.03 Drug induced constipation G47.00 Insomnia, unspecified G47.33 Obstructive sleep apnea (adult) (pediatric) F41.8 Other specified anxiety disorders Z68.29 Body mass index (BMI) 29.0-29.9, adult Assessments Date Code Description Provider 09/17/2019 M25.562 Pain in left knee David Perry D.O. 09/17/2019 Z01.818 Encounter for other preprocedural examination David Perry D.O. 09/17/2019 I10 Essential (primary) hypertension David Perry D.O. 09/17/2019 K59.03 Drug induced constipation David Perry D.O. 09/17/2019 G47.00 Insomnia, unspecified David Perry D.O. 09/17/2019 G47.33 Obstructive sleep apnea (adult) (pediatric) David Perry D.OSalma 09/17/2019 E78.00 Pure hypercholesterolemia, unspecified David Perry D.OSalma 09/17/2019 Z23 Encounter for immunization David Perry D.O. 09/17/2019 Z41.8 Encounter for other procedures for purposes David Perry D.O. other than remedying health state 09/17/2019 Z68.30 Body mass index (BMI) 30.0-30.9, adult David Perry D.O. 08/16/2019 H61.23 Impacted cerumen, bilateral Nurse's Schedule 08/12/2019 Z00.00 Encounter for general adult medical Mervat Moran MD examination without abno 08/12/2019 I10 Essential (primary) hypertension Mervat Moran MD 08/12/2019 K59.03 Drug induced constipation Mervat Moran MD 08/12/2019 G47.00 Insomnia, unspecified Mervat Moran MD 08/12/2019 G47.33 Obstructive sleep apnea (adult) (pediatric) Mervat Moran MD 08/12/2019 F41.8 Other specified anxiety disorders Mervat Moran MD 08/12/2019 Z68.29 Body mass index (BMI) 29.0-29.9, adult Mervat Moran MD Plan of Treatment Future Appointment(s):02/11/2020 8:30 am - Mervat Moran MD at [facility] - David Perry D.O.M25.562 Pain in left kneeZ01.818 Encounter for other preprocedural examinationFollow up:Jennifer is optimized for his surgical procedure. He is to continue his chronic medications as directed.I10 Essential (primary) hypertensionFollow up:as scheduled Suggested Ceci: My Fitness PalK59.03 Drug induced eddbxfvzadtbX45.00 Insomnia, ozkrdrqwhqwO00.33 Obstructive sleep apnea (adult) (pediatric)E78.00 Pure hypercholesterolemia, [id number] Encounter for rsgveaauodxvW35.8 Encounter for other procedures for purposes other than remedying health gupskH39.30 Body mass index (BMI) 30.0- 30.9, adult Functional Status Description No Information Available Mental Status Description No Information Available Referrals Description No Information Available
--- OUTSIDE RECORDS SUMMARY | 2019-10-15 12:31 | XMS REPORT | Continuity of Care Document ---
:1955 External Reference #:[id number] Author Name Natalie Russell M.D. (transmitted by agent of provider Yessi Osborne) Address [address] [place] [address] [place] [address] Care Team Providers Name Role Phone David Perry DO - Family Care Team Information Tobacco Dipper Medicine Problems Active Problems Provider Date Obstructive sleep apnea syndrome Ivette Natarajan DNP, RN, SIGNALLING AND COMMUNICATIONS ENGINEER- Onset: 02/2018 Localized, primary osteoarthritis Natalie Russell M.D. Onset: 06/04/2018 Periodic limb movement disorder Ivette Natarajan DNP, RN, SIGNALLING AND COMMUNICATIONS ENGINEER-BC Onset: 07/10 Malaise and fatigue Ivette Natarajan DNP, RN, SIGNALLING AND COMMUNICATIONS ENGINEER-BC Onset: 07/10/2018 Arthroplasty of knee Natalie Russell M.D. Onset: 10/26/2018 Social History Type Date Description Comments Sex Unknown Tobacco Use Start: Unknown Never Smoked Cigarettes Smoking Status Reviewed: 09/30/19 Never Smoked Cigarettes ETOH Use Denies alcohol use Tobacco Use Start: Unknown Patient has never smoked Recreational Drug Use Denies Drug Use Exercise Type/Frequency Exercises sporadically Allergies, Adverse Reactions, Alerts Active Allergies Reaction Severity Comments Date Pin Worm Medication 09/06/2017 Medications Active Medications SIG Qnty Indications Ordering Provider Date Amoxicillin take 4 pills, 2 g 4caps Natalie Russell, 02/19/2019 500mg 1 hour before M.D. Capsules dental or gi procedure Amlodipine Besylate 1 by mouth every Unknown day 2.5mg Tablets Fish Oil 1 by mouth daily Unknown 1000mg Capsules Trazodone HCL 1 tablet at Unknown 50mg bedtime every Tablets night Nasonex use two sprays in Unknown 50mcg/Act each nostril once Suspension daily Venlafaxine HCL ER once daily Unknown 37.5mg Caps ER 24HR Clonidine HCL 1 by mouth twice a Unknown 0.1mg day Tablets Lovastatin take one tablet by Unknown 40mg Tablets mouth at bedtime Multiple Vitamin Plus 1 by mouth every Unknown Lycopene other day Tablets Vitamin B12 1 by mouth two Unknown 500mg times per day Tablets Olopatadine HCL 1 drop each eye Unknown twice a day Tamsulosin HCL 1 by mouth every Unknown 0.4mg day Capsules Magnesium 1/2 every day Unknown 500mg Capsules Immunizations Description No Information Available Vital Signs Date Vital Result Comment 09/30/2019 8:11am Height 74 inches 6'2" Weight 234.00 lb Heart Rate 85 /min BP Systolic 128 mmHg BP Diastolic 62 mmHg Body Temperature 96.7 F Pain Level 0 BMI (Body Mass Index) 30.0 kg/m2 07/22/2019 8:10am Height 74 inches 6'2" Weight 233.00 lb Heart Rate 85 /min BP Systolic 118 mmHg BP Diastolic 60 mmHg Body Temperature 96.3 F Pain Level 2 BMI (Body Mass Index) 29.9 kg/m2 Results Description No Information Available Procedures Description No Information Available Medical Devices Description No Information Available Encounters Type Date Location Provider Dx Diagnosis Office Visit 07/22/2019 [facility] Natalie Russell, M25.562 Pain in left knee 8:00a at [place] [facility] M25.462 Effusion, left knee M17.12 Unilateral primary osteoarthritis, left knee M21.062 Valgus deformity, not elsewhere classified, left knee Office Visit 05/03/2019 [facility] G47.33 Obstructive sleep 9:45a [facility] Natarajan, RN, apnea (adult) Direct Mail Clerk SIGNALLING AND COMMUNICATIONS ENGINEER-BC (pediatric) G47.01 Insomnia due to medical condition Assessments Date Code Description Provider 09/30/2019 M25.562 Pain in left knee Natalie Russell M.D. 09/30/2019 M25.462 Effusion, left knee Natalie Russell M.D. 09/30/2019 M17.12 Unilateral primary osteoarthritis, Natalie Russell M.D. left knee 09/30/2019 M21.062 Valgus deformity, not elsewhere Natalie Russell M.D. classified, left knee 07/22/2019 M25.562 Pain in left knee Natalie Russell M.D. 07/22/2019 M25.462 Effusion, left knee Natalie Russell M.D. 07/22/2019 M17.12 Unilateral primary osteoarthritis, Natalie Russell M.D. left knee 07/22/2019 M21.062 Valgus deformity, not elsewhere Natalie Russell M.D. classified, left knee 05/03/2019 G47.33 Obstructive sleep apnea (adult) Ivette Natarajan DNP, RN, SIGNALLING AND COMMUNICATIONS ENGINEER- (pediatric) 05/03/2019 G47.01 Insomnia due to medical condition Ivette Natarajan DNP, RN , SIGNALLING AND COMMUNICATIONS ENGINEER- Plan of Treatment Future Appointment(s):10/28/2019 11:15 am - Natalie Russell M.D. at [facility] at [place]10/15/2019 8:30 am - Natalie Russell M.D. at [facility] at [place]9/30/2019 - Natalie Russell M.D.M25.562 Pain in left kneeFollow up:Follow up: 2 weeks after zezdehpB62.462 Effusion, left kneeM17.12 Unilateral primary osteoarthritis, left kneeM21.062 Valgus deformity , not elsewhere classified, left knee Functional Status Description No Information Available Mental Status Description No Information Available Referrals Description No Information Available
--- OUTSIDE RECORDS SUMMARY | 2019-10-15 12:31 | XMS REPORT | Continuity of Care Document ---
:1955 External Reference #:[id number] Author Name Natalie Russell M.D. 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 Onset: 06/04/2018 Periodic limb movement disorder Ivette Natarajan DNP, FELIX, COTTON GINNER-BC Onset: 07/10 Malaise and fatigue Ivette Natarajan DNP, RN, COTTON GINNER-BC Onset: 07/10/2018 Arthroplasty of knee Natalie Russell [...] Location Provider Dx Diagnosis Office Visit 07/22/2019 [facility] Natalie Russell, M25.562 Pain in left knee 8:00a at [place] [facility] M25.462 Effusion, left knee M17.12 Unilateral primary osteoarthritis, left knee M21.062 Valgus deformity, not elsewhere classified, left knee Office Visit 05/03/2019 [facility] G47.33 Obstructive sleep 9:45a [facility] Natarajan, RN, apnea (adult) Precision Instrument Maker And Repairer COTTON GINNER-BC (pediatric) G47.01 Insomnia due to medical condition [...] sleep apnea (adult) Ivette Natarajan DNP, RN, COTTON GINNER-BC (pediatric) 05/03/2019 G47.01 Insomnia due to medical condition Ivette Natarajan DNP, RN , COTTON GINNER-BC Plan of Treatment Future Appointment(s):10/28/2019 11:15 am - Natalie Russell M.D. at [facility] at [place]mpc7910/15/2019 8:30 am - Natalie Russell M.D. at [facility] at Dqnltt9709/30/2019 - Natalie Russell M.D.M25.562 Pain in left kneeNew Xrays:Knee Left 4+ VWS, Ordered: 09/30/19Follow up:Follow up: 2 weeks after bikraskI90.462 Effusion, left kneeM17.12 Unilateral primary osteoarthritis , left kneeM21.062 Valgus deformity, not elsewhere classified, left knee Functional Status Description No Information Available Mental Status Description No Information Available Referrals Description No Information Available
--- OUTSIDE RECORDS SUMMARY | 2019-10-15 12:31 | XMS REPORT | Continuity of Care Document ---
:1955 External Reference #:[id number] Author Name David Perry D.O. Address [address] [place] [id number] Care Team Providers Name Role Phone [facility] - Care Team Information Senior Search Marketing Analyst [phone] Gastroenterology Problems Active Problems Provider Date Pure [...] Essential hypertension David Perry D.O. Onset: 06/28/2017 Anxiety state Mervat Moran MD Onset: 08/12/2019 Drug-induced constipation Mervat Moran MD Onset: 08/12/2019 Obstructive sleep apnea syndrome Mervat Moran MD Onset: 08/12/2019 Social History [...] 10mg needed for Tablets heartburn. Mometasone Furoate [place] Two Sprays 17units J30.2 David Perry, 2018 [...] Code Status Date Vaccine Reaction Lot # 68574 Given 05/11/2019 Influenza Vaccine Split Virus Preservative Free Im Use (hi-dose) 00759 Given 03/28/2018 Shingrix Zoster (Shingles) [id number] Vaccine (HZV) Recomb,Subnit,Adjuvanted 64974 Given 12/27/2017 Shingrix Zoster (Shingles) [id number] Vaccine (HZV) Recomb,Subnit,Adjuvanted 73839 Given 04/17/2017 Influenza Virus Vaccine, [id number] Quadrivalent, Split, Preservative Free 69316 Given 06/01/2016 Influenza Virus Vaccine, [id number] Quadrivalent, Split, Preservative Free 43352 Given 06/02/2015 Flu, Split Virus 3Yrs 57405 Given 07/04/2014 Flu, Split Virus 3Yrs [id number] 41185 Given 06/17/2013 Flu, Split Virus 3Yrs [id number] 04702 Given 07/03/2012 Flu, Split Virus 3Yrs 25650 Given 06/16/2011 Zostavax [id number] 74740 Given 06/16/2011 Flu, Split Virus 3Yrs [id number] 71633 Given 12/13/2010 Adacel or Boostrix, TDaP [id number] 37333 Given 06/11/2010 Flu, Split Virus 3Yrs [id number] 33345 Given 06/23/2007 Flu, Split Virus 3Yrs [id number] 66080 Given 08/08/2006 Flu, Split Virus 3Yrs excessive insomnia onset that night happened once before in 2002 for 3 weeks after 87588 Given 10/31/2005 Td Immun[place] 142 80434 Given 08/11/2003 Flu, Split Virus 3Yrs Vital [...] BMI (Body Mass Index) 29.8 kg/m2 Results Description No Information Available Procedures Date Code Description Status 08/16/2019 53829 Remove Impact Cerumen Irrigation/Lavage Unilateral Completed 03/05/2015 71671461 Colonoscopy Completed Medical Devices Description No Information Available Encounters Type Date Location Provider Dx Diagnosis Office Visit 08/12/2019 Main Office Mervat Moran MD Z00.00 Encntr for general 12:55p adult medical exam w/o abnormal findings I10 Essential (primary) hypertension K59.03 Drug induced constipation G47.00 Insomnia, unspecified G47.33 Obstructive sleep apnea (adult) (pediatric) F41.8 Other specified anxiety disorders Z68.29 Body mass index (BMI) 29.0-29.9, adult Assessments Date Code Description Provider 09/17/2019 M25.562 Pain in left knee David Perry D.OSalma 09/17/2019 M25.552 Pain in left hip David Perry D.OSalma 09/17/2019 Z01.818 Encounter for other preprocedural examination David Perry D.OSalma 09/17/2019 I10 Essential (primary) hypertension David Perry D.OSalma 09/17/2019 K59.03 Drug induced constipation David Perry D.OSalma 09/17/2019 G47.00 Insomnia, unspecified David Perry D.OSalma 09/17/2019 G47.33 Obstructive sleep apnea (adult) (pediatric) David Perry D.OSalma 09/17/2019 F41.8 Other specified anxiety disorders David Perry D.O. 09/17/2019 Z96.651 Presence of right artificial knee joint David Perry D.O. 09/17/2019 E78.00 Pure hypercholesterolemia, unspecified David Perry D.O. 09/17/2019 Z68.30 Body mass index (BMI) 30.0-30.9, [...] am - Mervat Moran MD at [facility] - David Perry D.O.M25.562 Pain in left kneeM25.552 Pain in left hipZ01.818 Encounter for other preprocedural examinationNew Orders:EKG W/ Reading, Ordered: 09/17/19I10 Essential (primary) hypertensionNew Orders:EKG W/ Reading, Ordered: 09/17/19Follow up:as zqayrobizF57.03 Drug induced dcrfvwxwndmeR90.00 Insomnia, owqjdxepleaI92.33 Obstructive sleep apnea (adult) ( pediatric)F41.8 Other specified anxiety jmqfwysbkL33.651 Presence of right artificial knee dtoijO84.00 Pure hypercholesterolemia, ralnxicpqxbS48.30 Body mass index (BMI) 30.0-30.9, adult Functional Status Description No Information Available Mental Status Description No Information Available Referrals Description No Information Available
--- OUTSIDE RECORDS SUMMARY | 2019-10-15 12:31 | XMS REPORT | Continuity of Care Document ---
:1955 External Reference #:[id number] Author Name Rachel Paredes Care Team Providers Name Role Phone [facility] - Care Team Information Rebeamer [phone] Gastroenterology Problems Active Problems Provider Date Pure [...] 10mg needed for Tablets heartburn. Mometasone Furoate [place] Two Sprays 17units J30.2 David Perry, 2018 [...] Provider Date injection, kenalog, 10 mg David Perry D.O. 05/14/2018 Injection Immunizations CPT Code Status Date Vaccine Reaction Lot # 38732 Given 09/17/2019 Prevnar 13 [id number] 58248 Given 05/11/2019 Influenza Vaccine Split Virus Preservative Free Im Use (hi-dose) 98440 Given 03/28/2018 Shingrix Zoster (Shingles) [id number] Vaccine (HZV) Recomb,Subnit,Adjuvanted 22458 Given 12/27/2017 Shingrix Zoster (Shingles) [id number] Vaccine (HZV) Recomb,Subnit,Adjuvanted 63590 Given 04/17/2017 Influenza Virus Vaccine, [id number] Quadrivalent, Split, Preservative Free 86439 Given 06/01/2016 Influenza Virus Vaccine, [id number] Quadrivalent, Split, Preservative Free 97842 Given 06/02/2015 Flu, Split Virus 3Yrs 25354 Given 07/04/2014 Flu, Split Virus 3Yrs [id number] 78457 Given 06/17/2013 Flu, Split Virus 3Yrs [id number] 29595 Given 07/03/2012 Flu, Split Virus 3Yrs 40111 Given 06/16/2011 Zostavax [id number] 33388 Given 06/16/2011 Flu, Split Virus 3Yrs [id number] 29367 Given 12/13/2010 Adacel or Boostrix, TDaP [id number] 38421 Given 06/11/2010 Flu, Split Virus 3Yrs [id number] 17021 Given 06/23/2007 Flu, Split Virus 3Yrs [id number] 31792 Given 08/08/2006 Flu, Split Virus 3Yrs excessive insomnia onset that night happened once before in 2002 for 3 weeks after 54467 Given 10/31/2005 Td Immunization TD 142 74791 Given 08/11/2003 Flu, Split Virus 3Yrs Vital [...] Information Available Procedures Date Code Description Status 09/17/2019 35893 Electrocardiogram Complete Completed 08/16/2019 94337 Remove Impact Cerumen Irrigation/Lavage Unilateral Completed 03/05/2015 35877189 Colonoscopy Completed Medical Devices Description No Information Available Encounters Type Date Location Provider Dx Diagnosis Office Visit 09/17/2019 Main Office David Perry, M25.562 Pain in left knee 11:00a D.O. M25.552 Pain in left hip Z01.818 Encounter for other preprocedural examination I10 Essential (primary) hypertension K59.03 Drug induced constipation G47.00 Insomnia, unspecified G47.33 Obstructive sleep apnea (adult) (pediatric) F41.8 Other specified anxiety disorders Z96.651 Presence of right artificial knee joint E78.00 Pure hypercholesterolemia, unspecified Z23 Encounter for immunization Z41.8 [facility] Body mass index (BMI) 30.0-30.9, adult [...] in left knee David Perry D.O. 09/17/2019 M25.552 Pain in left hip David Perry D.O. 09/17/2019 Z01.818 Encounter for other preprocedural examination David Perry D.O. 09/17/2019 I10 Essential (primary) hypertension David Perry D.O. 09/17/2019 K59.03 Drug induced constipation David Perry D.O. 09/17/2019 G47.00 Insomnia, unspecified David Perry D.O. 09/17/2019 G47.33 Obstructive sleep apnea (adult) (pediatric) David Perry D.O. 09/17/2019 F41.8 Other specified anxiety disorders David Perry D.O. 09/17/2019 Z96.651 Presence of right artificial knee joint David Perry D.O. 09/17/2019 E78.00 Pure hypercholesterolemia, unspecified David Perry D.O. 09/17/2019 Z23 Encounter for immunization David Perry [...] am - Mervat Moran MD at [facility] - David Perry D.O.M25.562 Pain in left kneeM25.552 Pain in left hipZ01.818 Encounter for other preprocedural brrpehqitykN50 Essential (primary) hypertensionFollow up:as scheduled Suggested Ceci: My Fitness PalK59.03 Drug induced zbahhcxsisidI55.00 Insomnia, ypvrjziwkhmF15.33 Obstructive sleep apnea ( adult) (pediatric)F41.8 Other specified anxiety bmaczkhnpH58.651 Presence of right artificial knee kesucW34.00 Pure hypercholesterolemia, stsauaejyarV58 Encounter for oboqtocvkzpyC12.8 Encounter for other procedures for purposes other than remedying health xomyfC53.30 Body mass index (BMI) 30.0-30.9, adult Functional Status Description No Information Available Mental Status Description No Information Available Referrals Description No Information Available
[2019-10-15] MEDS ORDERED: Midazolam* 1 MG/ML 2 ML VIAL (2 MG) ONE (12:49)
[2019-10-15] MEDS ORDERED: fentaNYL* 50 MCG/ML 2 ML VIAL (100 MCG VIAL) ONE (12:49)
[2019-10-15] MEDS ORDERED: Acetaminophen TAB* 325 MG ONE (12:50)
[2019-10-15] MEDS ORDERED: Gabapentin CAP(*) 300 MG ONE (12:51)
[2019-10-15] MEDS ORDERED: celeCOXIB CAP* 200 MG ONE (12:51)
[2019-10-15] MEDS ORDERED: ceFAZolin 2 GM in NS PREMIX(*) 2 GM/100 ML BAG IVPB ONE (12:51)
[2019-10-15] MEDS ORDERED: oxyCODONE TAB* 5 MG TAB PO PRN ×2 (14:42→17:13)
[2019-10-15] MEDS ORDERED: HYDROmorphone INJ1* 1 MG/ML SYRINGE IV PRN (14:42)
[2019-10-15] MEDS ORDERED: Naloxone* 0.4 MG/ML 1 ML VIAL IV PRN (14:42)
[2019-10-15] MEDS ORDERED: Ondansetron INJ* 2 MG/ML VIAL ONE (16:17)
[2019-10-15] MEDS ORDERED: Bupivacaine 0.5% SDV PF* 30ML VIAL ONE (16:17)
[2019-10-15] MEDS ORDERED: Dexamethasone IV* 4 MG/ML 1 ML (4 MG) ONE (16:17)
[2019-10-15] MEDS ORDERED: Lidocaine 2% PF * 5 ML VIAL ONE (16:17)
[2019-10-15] MEDS ORDERED: Propofol* 10 MG/ML 20 ML BTL ONE (16:17)
[2019-10-15] MEDS ORDERED: Ondansetron INJ* 2 MG/ML VIAL IV PRN (17:13)
[2019-10-15] MEDS ORDERED: diPHENhydraMINE IV* 50 MG/ML 1 ml VIAL (BENADRYL) IV PRN (17:13)
[2019-10-15] MEDS ORDERED: traMADol TAB* 50 MG PO PRN (17:13)
[2019-10-15] MEDS ORDERED: Polyethylene Glycol 3350* 17 GM PACKET PO PRN (17:13)
[2019-10-15] MEDS ORDERED: Ondansetron ODT TAB* 4 MG PO PRN (17:13)
[2019-10-15] MEDS ORDERED: Morphine INJ* 2 MG/ML 1 ML SYRINGE (TWO MG - NEW SYRINGE VERSION) IV PRN (17:13)
[2019-10-15] MEDS ORDERED: Cyclobenzaprine TAB* 10 MG PO PRN (17:13)
[2019-10-15] MEDS ORDERED: Temazepam CAP* 15 MG PO PRN (17:13)
[2019-10-15] MEDS ORDERED: Magnesium Hydroxide LIQ* 30 ML UDC PO PRN (17:13)
[2019-10-15] MEDS ORDERED: oxyCODONE/Acetamin 5/325 MG* TAB PO PRN (17:13)
[2019-10-15] MEDS ORDERED: diPHENhydraMINE PO* 25 MG PO PRN (17:13)
[2019-10-15] MEDS: Lactated Ringers 1000 ML Bag* 1,000 ML IV SCH (20:54)
--- NOTE | 2019-10-15 21:22 | OP ---
Operative Report - Blank - Operative Report Date of Operation: 10/15/19 Note: JENNIFER TRAN 1955 Date of Surgery: 10/15/19 Natalie Russell MD Analysis Manager: Christine BRANNNO did help throughout the procedure with preparation of the knee, wound retraction, manipulation of the knee, and wound closure. Anesthesiologist: Dr. Small Anesthesia Type: Spinal Preoperative Diagnosis: Left severe degenerative osteoarthritis of the knee Postoperative Diagnosis: As above Procedure Performed: Left Total Knee Arthroplasty Tourniquet time: 56 minutes Complications: None Specimen: Bone and cartilage from the left knee joint sent to pathology. Hardware Used: Cemented [employer]ford [employer]hew total knee hardware was used - For the femur a size 8 left oxinium legion posterior stabilized femoral component, for the tibia a size 8 left herminio II tibial baseplate, for the insert a size 9mm 7 -8 posterior stabilized articular polyethylene insert, and for the patella a size 38 3-peg all poly patella. Brief History/Indication: JENNIFER TRAN was known in clinic and had a history of severe left knee pain and swelling. He failed conservative treatment with anti-inflammatories, pain pills, intra-articular injections and physical therapy. He elected to undergo left total knee arthroplasty due to continued pain and decreased quality of life. Radiographs showed severe end stage osteoarthritis of the knee with bone on bone contact. Informed consent was obtained from the patient. He understood the risks of surgery included but were not limited to: bleeding, infection, damage to nearby structures, intraoperative fracture, nerve palsy, failure of the hardware, early loosening, knee stiffness or loss of motion, anesthesia complications, stroke, heart attack , blood clot and . He wished to proceed. Intra-Operative Findings: Intraoperatively the patient was noted to have severe loss of cartilage in all 3 compartments of the knee. He had a preoperative valgus deformity of 17 degrees and a flexion contracture of 15 degrees. Description of the Procedure: JENNIFER TRAN was identified in the preanesthesia unit. His left knee was marked as the correct operative side. Informed consent was signed and placed in the chart. The patient was taken to the operating room and placed under anesthesia without complication. A leyva catheter was placed. A tourniquet was placed on the left thigh. The left lower extremity was prepped and draped in the usual sterile fashion. Preoperative time-out was made to correctly identify the patient, side and site. Appropriate intraoperative antibiotics were given within one hour of incision. Tourniquet was inflated. A midline incision was made and carried sharply down to the extensor mechanism. A new 10 blade was used to make a standard medial parapatellar arthrotomy. The patella was subluxed laterally. Electrocautery was used to dissect soft tissue off the superomedial tibia to the midsagittal plane. The knee was flexed up. The anterior horn of the lateral meniscus and the ACL were sharply incised. A drill was used to enter the distal femur. The intramedullary distal femoral cutting guide was pinned on the distal femur. The oscillating saw was used to make the distal femoral cut. The external rotation guide was pinned on the distal femur and the distal femur was sized to a size 8. The size 8 multi-cutting jig was pinned on the distal femur. The oscillating saw was used to make the appropriate 4 chamfer cuts. Next the PCL was completely released. The extramedullary tibial cutting guide was pinned on the proximal tibia and the oscillating saw was used to make the proximal tibial cut perpendicular to the mechanical axis of the tibia. The bone was carefully removed. The knee was brought out into full extension. The spacer block was placed and had excellent fit with the knee in full extension. The medial and lateral ligaments were well balanced. The flexion and extension gaps were well balanced. The knee was flexed up. Lamina seismograph operator was placed both medially and laterally. Any remaining meniscus was removed with electrocautery. Curved osteotome was used to remove any posterior osteophytes. The tibial tray and drop meghna were placed and confirmed a satisfactory tibial cut. The size 8 left femoral trial was impacted onto the distal femur. This trial had excellent fit and stability. The box for the posterior stabilized implant was prepared using a box cut osteotome and a reamer. Next a tibial tray trial and 9 mm insert trial was placed. The knee was taken through a range of motion and had full extension to 130 degrees of flexion. Patellofemoral tracking was satisfactory. The patella was inverted and sized to a size 38. Three peg holes were drilled through the size 38 drill guide. The trial patella was placed and the knee was taken through a range of motion. There was satisfactory patellofemoral tracking. All trials were removed. The tibia was subluxed anteriorly and sized to a size 8. The proximal tibial was prepared with a size 8 keel punch. All bony cut surfaces were irrigated with sterile saline and dried. Final implants were cemented into place starting with the tibia, followed by the femur, and last the patella. A 9 mm insert trial was placed and the knee was brought into full extension. Tourniquet was turned down and the knee was copiously irrigated with sterile saline. Electrocautery was used to obtain meticulous hemostasis. Once the cement had fully cured, the insert trial was removed. Any excess cement was removed from around the hardware and capsule. Final insert chosen was a 9 mm posterior stabilized Herminio II articular insert size 7-8. Stability of the insert was checked and noted to be stable. The extensor mechanism was closed using number 1 vicryls. The rest of the incision was closed in a layered fashion using 0 and 2-0 vicryls. The skin was closed using 3-0 nylon suture. Sterile xeroform, 4x4s and webril were used to cover the incision. Cameron wrap and cold pack were used to cover the dressings. The patients anesthesia was reversed without difficulty. He was taken to the PACU in stable condition. Intended weight-bearing will be as tolerated.
[2019-10-15] MEDS: Atorvastatin* 10 MG TAB PO SCH (23:10)
[2019-10-15] MEDS: amLODIPine TAB* 5 MG PO SCH (23:11)
[2019-10-15] MEDS: Cyanocobalamin TAB* 500 MCG PO SCH (23:11)
[2019-10-15] MEDS: Docusate CAP* 100 MG PO SCH (23:11)
[2019-10-15] MEDS: oxyCODONE/Acetamin 5/325 MG* TAB PO PRN (23:12)
[2019-10-15] MEDS: cloNIDine TAB* 0.1 MG PO SCH (23:13)
[2019-10-15] MEDS: Magnesium Hydroxide LIQ* 30 ML UDC PO SCH (23:13)
[2019-10-15] MEDS: Acetaminophen TAB* 325 MG PO SCH (23:15)
[2019-10-15] MEDS: Tamsulosin CAP* 0.4 MG PO SCH (23:16)
[2019-10-16] MEDS: ceFAZolin 1 GM ADVAN(*) 1 GM in NS 0.9% 50 ML* 50 ML IVPB SCH ×3 (00:58→16:28)
[2019-10-16] MEDS: oxyCODONE/Acetamin 5/325 MG* TAB PO PRN ×4 (03:44→16:32)
[2019-10-16] MEDS: Acetaminophen TAB* 325 MG PO SCH ×2 (05:58→12:22)
[2019-10-16] MEDS: Lactated Ringers 1000 ML Bag* 1,000 ML IV SCH (07:16)
[2019-10-16 07:17] LABS: Hematocrit 39 % (42-52); Mean Platelet Volume 7.8 fL (7.4-10.4); Platelet Count 205 10^3/uL (150-450)
[2019-10-16 07:36] LABS: BUN/Creatinine Ratio 17.4 (8-20); Calcium 9.4 mg/dL (8.6-10.3); EGFR African American 82.2 (>60); EGFR Non-African American 67.9 (>60); Potassium 4.9 mmol/L (3.5-5.0)
[2019-10-16] MEDS ORDERED: Apixaban* 2.5 MG TAB PO SCH (09:00)
[2019-10-16] MEDS ORDERED: Vitamin THERAPEUTIC TAB PO SCH (09:00)
[2019-10-16] MEDS ORDERED: CMCS: Olopatadine 0.1% OPHTH (NF) 1 DROP BTL BOTH EYES SCH (09:00)
[2019-10-16] MEDS ORDERED: Fluticasone NASAL SPRAY 50MCG* 16 gm SPRAY BTL BOTH NARES SCH (09:00)
[2019-10-16] MEDS ORDERED: Magnesium Chloride EC TAB* 64 MG PO SCH (09:00)
[2019-10-16] MEDS ORDERED: Venlafaxine EXT RELEASE CAP* 37.5 MG PO SCH (09:00)
[2019-10-16] MEDS: Cyanocobalamin TAB* 500 MCG PO SCH (09:13)
[2019-10-16] MEDS: Docusate CAP* 100 MG PO SCH (09:13)
[2019-10-16] MEDS: cloNIDine TAB* 0.1 MG PO SCH (09:15)
[2019-10-16] MEDS: Magnesium Hydroxide LIQ* 30 ML UDC PO SCH (09:16)
--- NOTE | 2019-10-16 12:54 | PN ---
Progress Note - Progress Note Date of Service: 10/16/19 SOAP: Subjective: []Pt seen and examined OOB in chair. He feels well without CP, SOB, dizziness, nausea. Has anterior left ankle pain, xrays done this morning without acute findings. Nonpainful with weightbearing. Objective: []Gen: NAD LLE: Knee dressing CDI, thigh soft, DF/PF intact, DP2+, sensation intact to light touch distally. Tender to palpation over anterior ankle, no medial or lateral malleolus tenderness, no pain with flexion, extension, inversion or eversion. Calves supple and nontender without erythema, edema or palpable cords Assessment: []POD 1 sp LTK Plan: []WBAT PT eliquis 2.5 mg po bid x 30 days post op Home today if PT goals met, will need dressing change Vital Signs Temp 98 F 10/16/19 11:22 Pulse 75 10/16/19 11:22 Resp 18 10/16/19 12:22 BP 126/62 10/16/19 11:22 Pulse Ox 99 10/16/19 11:22 Intake & Output 10/15/19 10/16/19 10/16/19 18:59 06:59 18:59 Intake Total 3500 960 1355 Output Total 1150 2500 Balance 2350 -1540 1355 Weight 231 lb 14.821 oz Intake: IV Fluids 3500 980 LR 3500 980 IVPB 55 LR 55 Oral 960 320 Output: Sandoval 1150 2500 Other: Estimated Blood Loss 250 Comment Laboratory Last Values Hgb 13.0 g/dL (14.0-18.0) L 10/16/19 06:52 Hct 39 % (42-52) L 10/16/19 06:52 Plt Count 205 10^3/uL (150-450) 10/16/19 06:52 MPV 7.8 fL (7.4-10.4) 10/16/19 06:52 Sodium 140 mmol/L (135-145) 10/16/19 06:52 Potassium 4.9 mmol/L (3.5-5.0) 10/16/19 06:52 Chloride 104 mmol/L (101-111) 10/16/19 06:52 Carbon Dioxide 29 mmol/L (22-32) 10/16/19 06:52 Anion Gap 7 mmol/L (2-11) 10/16/19 06:52 BUN 19 mg/dL (6-24) 10/16/19 06:52 Creatinine 1.09 mg/dL (0.67-1.17) 10/16/19 06:52 Est GFR ( Amer) 82.2 (>60) 10/16/19 06:52 Est GFR (Non-Af Amer) 67.9 (>60) 10/16/19 06:52 BUN/Creatinine Ratio 17.4 (8-20) 10/16/19 06:52 Glucose 169 mg/dL (70-100) H 10/16/19 06:52 Calcium 9.4 mg/dL (8.6-10.3) 10/16/19 06:52 Blood Type O Positive 10/15/19 13:30 Antibody Screen Negative 10/15/19 13:30
--- NOTE | 2019-10-16 13:04 | DS ---
Orthopedic Discharge Summary - Discharge Summary Date of Admission:10/15/19 Date of Discharge: 10/16/19 Date of Surgery: 10/15/19 Attending Orthopedic Provider: Dr Russell Pre-operative Diagnosis: Left knee osteoarthritis Operative Procedure: left total knee replacement Disposition of Patient:home Home care vs Outpatient services: [facility] home nursing and pt Condition of Patient: stable Pain medication RX at discharge: percocet 5/325 DVT prophylaxis RX at discharge: eliquis 2.5 mg po bid x 30 days History: JENNIFER TRAN is a 64 year old M with years of increasingly severe left knee pain. Patient has failed conservative management and has elected to undergo a left total knee replacement Hospital Course: JENNIFER was admitted to [facility] on 10/15/19. Patient underwent a left total knee replacement without complication followed by a brief recovery in PACU and transfer to the Short Stay Surgical Unit in stable condition. Our hospitalist service, physical therapy also participated in this patients care. Post-op day 1: patient was alert and in no acute distress. Dressing was clean, dry and intact. Operative extremity dorsiflexion and plantarflexion intact, sensation intact to light touch distally, DP2+. Prior to discharge: dressing was changed, incision was clean, dry and intact. Patient was deemed to be medically and orthopedically stable for discharge. Physical therapy goals were met. Home Medications Medication Instructions Recorded Confirmed Type Fexofenadine (NF) [Eliza 180 180 mg PO ONCE PRN 02/27/15 10/15/19 History (NF)] Mometasone NASAL (NF) [Nasonex 50 mcg BOTH NARES QAM 02/27/15 10/15/19 History (NF)] Olopatadine 0.1% OPHTH (NF) 1 drop BOTH EYES QAM 02/27/15 10/15/19 History Patanol 0.1% OPHTH (NF) cloNIDine HCl [Catapres 0.1 MG TAB] 0.1 mg PO BID 02/27/15 10/15/19 History traZODone TAB* [Desyrel TAB*] 50 mg PO QPM 02/27/15 10/15/19 History Cyanocobalamin TAB* [Vitamin B12 1 tab PO BID 09/07/18 10/15/19 History TAB*] Lovastatin [Altoprev] 40 mg PO QPM 09/07/18 10/15/19 History [place]-3 Fatty Acids/Fish Oil [Fish 1 tab PO QAM 09/07/18 10/15/19 History Oil 1,000 mg Capsule] Tamsulosin CAP* [Flomax CAP*] 0.4 mg PO QPM 09/07/18 10/15/19 History Venlafaxine HCl [Effexor XR-] 37.5 mg PO QAM 09/07/18 10/15/19 History Acetaminophen [Acetaminophen Extra 500 mg PO ONCE PRN 09/30/19 10/15/19 History Strength] Amlodipine Besylate [Amlodipine 2.5 mg PO QPM 09/30/19 10/15/19 History 2.5 mg tab] Famotidine TAB* [Pepcid 20 MG TAB*] 20 mg PO QAM 09/30/19 09/30/19 History Lidocaine 1 units TOPICAL BID PRN 09/30/19 09/30/19 History Magnesium Chloride EC TAB* [Slow 64 mg PO QAM 09/30/19 10/15/19 History Mag EC TAB*] Multivit-Min/FA/Lycopen/Lutein 1 dose PO QAM 09/30/19 10/15/19 History [Centrum Silver Men Tablet] Acetaminophen TAB* [Tylenol TAB*] 975 mg PO Q8HR tab 10/16/19 Rx Apixaban* [Eliquis*] 2.5 mg PO Q12HR #60 tab 10/16/19 Rx Docusate CAP* [Colace Cap*] 100 mg PO BID PRN #60 cap 10/16/19 Rx Docusate Sodium [Colace] 100 mg PO Q12HR PRN #50 capsule 10/16/19 Rx Oxycodone HCl/Acetaminophen 2 each PO Q4HR PRN #60 tablet MDD 10/16/19 Rx [Percocet 5-325 mg Tablet] 10 oxyCODONE/Acetamin 5/325 MG* 1 tab PO Q4H PRN tab MDD 10 10/16/19 Rx [Percocet 5/325 TAB*] Discharge Instructions following Orthopedic Surgery: Activity: * Weight Bearing as tolerated * Home PT- Continue physical therapy and occupational therapy exercises as shown Wound care: * OK to shower on post-op day 3, no bathing, swimming, or submerging wound. * Use gentle soap, pat dry. Cover with gauze, ANNELIESE wrap or tape. * visiting home nurse will perform wound checks. Call Orthopedic office for: * Increased drainage * Redness * Increased pain * Fever Go to ER with shortness of breath or chest pain. Diet: * Regular diet * Increase fluids and fiber to prevent constipation. * Continue to use stool softeners, call office if no bowel motion within 48 hours. Medications See Home Medication List in your packet for medications that you should take after discharge. DVT Prophylaxis: Eliquis Dosin.5 mg, 1 tab every 12 hours x 30 days - Increases bleeding tendency Pain Control: Percocet 5/325 mg 1 tab for moderate pain and 2 tabs for severe pain by mouth every 4 hours as needed. Maximum of 10 tabs per day. Hold for sedation , wean off as soon as pain allows Please note that Percocet contains Tylenol (acetaminophen). Maximum daily dose of Tylenol is 4000 mg from all sources. Antibiotics are required prior to any dental work. FOLLOW UP: Follow up with Dr. Russell Within 14 days, call for appointment Please call our office with any questions or concerns ([phone]) RX Angi Mandujano
[2019-10-16 14:58] VITALS: BP 130/60
[2019-10-16] MEDS: amLODIPine TAB* 5 MG PO SCH (17:25)
[2019-10-16] MEDS: Tamsulosin CAP* 0.4 MG PO SCH (17:38)
[2019-10-16] MEDS: Atorvastatin* 10 MG TAB PO SCH (17:38)
== END 2019-10-16 19:00 | disposition home or self-care (01) ==
LOC: AA 12:27 → INTOOBSV 12:27 → SSU 17:13
PROVIDERS: ADMIT Orthopaedic Surgery Adult Reconstructive Orthopaedic Surgery; ATTEND Orthopaedic Surgery Adult Reconstructive Orthopaedic Surgery
DX: M17.12 Unilateral primary osteoarthritis, left knee (principal); I10 Essential (primary) hypertension; E78.00 Pure hypercholesterolemia, unspecified; F32.9 Major depressive disorder, single episode, unspecified; F41.9 Anxiety disorder, unspecified; G47.30 Sleep apnea, unspecified; Z79.899 Other long term (current) drug therapy
CPT/HCPCS: 36415; 71046; 80048; 85014; 85018; 85049; 86850; 86900; 86901; 96365; A9270-GY; G0378; J0690; J1100; J2250; J2405; J2704; J3010; J3490

== ENCOUNTER 2019-10-19 19:49 | Emergency (ER) | payer BC ==
--- OUTSIDE RECORDS SUMMARY | 2019-10-19 20:05 | XMS REPORT ---
:1955 Author Organization [facility] Care Team Providers Name Role Phone Unavailable Unavailable Unavailable Problems Condition Condition Condition Status Onset Resolution Last Treating Comments Name Details Category Date Date Treatment Clinician Date Unilateral Unilateral Diagnosis Active 2020-0 Cheyanne primary primary 2-12 Ingrahm osteoarthri osteoarthri [id number] tis, left tis, left knee knee Nutrition nutritional Nutrition Active 2020-0 Guillermo restriction 2-13 Anguish s 12:51: [id number] Activity ADL Activity Active 2020-0 Guillermo assistance 2-13 Anguish required 12:51: [id number] Safety structural Safety Active 2020-0 Guillermo barriers 2-13 Anguish present 12:51: [id number] Safety fall risk Safety Active 2020-0 Guillermo factor 2-13 Anguish present 12:51: [id number] Safety can be left Safety Active 2020-0 Guillermo alone for 2-13 Anguish only short 12:51: [id number] periods 00 Musculoskel transfer Musculoske Active 2020-0 Guillermo etal assistance letal 2-13 Anguish required 12:51: [id number] 00 Musculoskel requires Musculoske Active 2020-0 Guillermo etal human letal 2-13 Anguish assist to 12:51: [id number] leave home 00 Bed transfer PT/OT: Bed Active 2020-0 Guillermo Mobility/Tr deficit: Mobility/T 2-13 Anguish ansfer sit/stand ransfer 12:51: [id number] Bed transfer PT/OT: Bed Active 2020-0 Guillermo Mobility/Tr deficit: Mobility/T 2-13 Anguish ansfer standing ransfer 12:51: [id number] pivot 00 Bed transfer PT/OT: Bed Active 2020-0 Guillermo Mobility/Tr deficit: Mobility/T 2-13 Anguish ansfer toilet/comm ransfer 12:51: [id number] ode 00 Bed transfer PT/OT: Bed Active 2020-0 Guillermo Mobility/Tr deficit: Mobility/T 2-13 Anguish ansfer shower/tub ransfer 12:51: [id number] 00 Bed bed PT/OT: Bed Active Guillermo Mobility/Tr mobility Mobility/T 2-13 Anguish ansfer deficit ransfer 12:51: [id number] 00 Balance/End balance/pharmacy coordinator PT/OT: Active Guillermo urance rdination Balance/En 2-13 Anguish deficit durance 12:51: [id number] 00 Balance/End endurance PT/OT: Active Guillermo urance deficit Balance/En 2-13 Anguish durance 12:51: [id number] Gait/Locomo gait PT/OT: Active Guillermo tion assistive Gait/Locom 2-13 Anguish problems device otion 12:51: [id number] present 00 Gait/Locomo gait PT/OT: Active Guillermo tion deficit Gait/Locom 2-13 Anguish problems otion 12:51: [id number] 00 Allergies, Adverse Reactions, Alerts Allergy Allergy Status Severity Reaction(s) Onset Inactive Treating Comments Name Type Date Date Clinician Unknown None Active Unknown None Unknown No Known Allergies For This Patient Medications Ordered Filled Start Stop Current Ordering Indication Dosage Frequency Signature Comments Components Medication Medication Date Date Medication? Clinician (SIG) Name Name No Known No Known No None None None Medications Medications For This For This Patient Patient Vital Signs Vital Name Observation Time Observation Value Comments SYSTOLIC mm[Hg] 2019-10-17 18:10:22 162 mm[Hg] mm[Hg] Method: Sit DIASTOLIC mm[Hg] 2019-10-17 18:10:22 72 mm[Hg] mm[Hg] Method: Sit PULSE 2019-10-17 18:10:22 82 /min /min TEMP 2019-10-17 18:10:22 98.9 [degF] Procedures This patient has no known procedures. Results This patient has no known results.
--- OUTSIDE RECORDS SUMMARY | 2019-10-19 20:05 | XMS REPORT ---
:1955 Author Organization [facility] Care Team Providers Name Role Phone Unavailable Unavailable Unavailable Problems Condition Condition Condition Status Onset Resolution Last Treating Comments Name Details Category Date Date Treatment Clinician Date Unilateral Unilateral Diagnosis Active 2019-0 Cheyanne primary primary 2-12 Ingrahm osteoarthri osteoarthri [id number] tis, left tis, left knee knee Allergies, Adverse Reactions, Alerts Allergy Allergy Status [...] Medications For This For This Patient Patient Procedures This patient has no known procedures. Results This patient has no known results.
--- OUTSIDE RECORDS SUMMARY | 2019-10-19 20:05 | XMS REPORT ---
:1955 Author Organization [facility] Care Team Providers Name Role Phone Unavailable Unavailable Unavailable Problems Condition Condition Condition Status Onset Resolution Last Treating Comments Name Details Category Date Date Treatment Clinician Date Unilateral Unilateral Diagnosis Active 2020-0 Cheyanne primary primary 2-12 Ingrahm osteoarthri osteoarthri [id number] tis, left tis, left knee knee Nutrition nutritional Nutrition Active 2020-0 Guillermo restriction 2-13 Anguish s 12:51: [id number] Activity ADL Activity Active 2020-0 Guillermo assistance 2-13 Anguish required 12:51: [id number] Safety structural Safety Active 2020-0 Guillermo barriers 2-13 Anguish present 12:51: [id number] Safety fall risk Safety Active 2020-0 Guillermo factor 2-13 Anguish present 12:51: [id number] 00 Safety can be left Safety Active 2020-0 Guillermo alone for 2-13 Anguish only short 12:51: [id number] periods 00 Musculoskel transfer Musculoske Active 2020-0 Guillermo etal assistance letal 2-13 Anguish required 12:51: [id number] 00 Musculoskel requires Musculoske Active 2020-0 Guillermo etal human letal 2-13 Anguish assist to 12:51: [id number] leave home 00 Bed transfer PT/OT: Bed Active 2020-0 Guillermo Mobility/Tr deficit: Mobility/T 2-13 Anguish ansfer sit/stand ransfer 12:51: [id number] Bed transfer PT/OT: Bed Active 2020-0 Guillermo Mobility/Tr deficit: Mobility/T 2-13 Anguish ansfer standing ransfer 12:51: [id number] pivot 00 Bed transfer PT/OT: Bed Active 2020-0 Guillermo Mobility/Tr deficit: Mobility/T 2-13 Anguish ansfer toilet/comm ransfer 12:51: [id number] ode 00 Bed transfer PT/OT: Bed Active 2020-0 Guillermo Mobility/Tr deficit: Mobility/T 2-13 Anguish ansfer shower/tub ransfer 12:51: [id number] 00 Bed bed PT/OT: Bed Active Guillermo Mobility/Tr mobility Mobility/T 2-13 Anguish ansfer deficit ransfer 12:51: [id number] 00 Balance/End balance/educational coordinator PT/OT: Active Guillermo urance rdination Balance/En 2-13 Anguish deficit durance 12:51: [id number] 00 Balance/End endurance PT/OT: Active Guillermo urance deficit Balance/En 2-13 Anguish durance 12:51: [id number] 00 Gait/Locomo gait PT/OT: Active Guillermo tion assistive Gait/Locom 2-13 Anguish problems device otion 12:51: [id number] present 00 Gait/Locomo gait PT/OT: Active Guillermo tion deficit Gait/Locom 2-13 Anguish problems otion 12:51: [id number] 00 Allergies, Adverse Reactions, Alerts Allergy Allergy [...]
--- NOTE | 2019-10-19 20:08 | ED ---
HPI Febrile Illness - HPI Summary HPI Summary: 64 year old male presents with fever today. States it has increased swelling to his left knee that he noticed today. He also has a new rash to the left knee. He states he has same range of motion of knee as did post surgery. He sees an occasional cough that is not new. He denies any urinary symptoms. No one else is sick. he denies any increase in pain in the knee. Has been taking Percocet with last dose 2 hours. fever at home was 100.8. He states he just feels very fatigued. he had a knee replacement on 10/[address] Russell. - History of Current Complaint Chief Complaint: EDExtremityLower Time Seen by Provider: 10/19/19 19:59 Pain Intensity: 4 - Additional Pertinent History Primary Care Physician: LENY - Allergy/Home Medications Allergies/Adverse Reactions: Allergies Allergy/AdvReac Type Severity Reaction Status Date / Time pin worm medication Allergy Intermediate Hives Uncoded 10/19/19 19:56 PMH/Surg Hx/FS Hx/Imm Hx Endocrine/Hematology History: Denies: Hx Anemia Cardiovascular History: Reports: Hx Hypertension - HX OF-ON MEDICATION FOR Denies: Other Cardiovascular Problems/Disorders Respiratory History: Reports: Hx Sleep Apnea Denies: Other Respiratory Problems/Disorders GI History: Denies: Other GI Disorders History: Reports: Hx Kidney Infection - HX OF-20+ YEARS AGO-NOTHING IN THE LAST 6 MONTHS Denies: Other Problems/Disorders Musculoskeletal History: Reports: Hx Arthritis - BOTH KNEES Denies: Other Musculoskeletal History Sensory History: Reports: Hx Cataracts - BEING OF CATARACTS, Hx Contacts or Glasses - GLASSES Denies: Hx Hearing Aid Opthamlomology History: Reports: Hx Cataracts - BEING OF CATARACTS, Hx Contacts or Glasses - GLASSES Neurological History: Denies: Other Neuro Impairments/Disorders Psychiatric History: Reports: Hx Anxiety - HX OF-ON MEDICATIOIN FOR, Hx Depression - HX OF-PATIENT SEE PSYCHOLOGIST-ON MEDICATION FOR Denies: Other Psychiatric Issues/Disorders - Surgical History Surgery Procedure, Year, and Place: RIGHT KNEE ARTHROSCOPY 2004-. RIGHT TOTAL KNEE-09/2018. CYSTS REMOVED BACK-,. MOST RECENT CYST REMOVED FROM BACK-2014. CYST REMOVED FROM LEFT THIGH-1988 Hx Anesthesia Reactions: No Infectious Disease History: No Infectious Disease History: Denies: History Other Infectious Disease, Traveled Outside the [place] in Last 30 Days - Family History Known Family History: Positive: Non-Contributory - Social History Alcohol Use: None Substance Use Type: Reports: Tranquilizers Substance Use Comment - Amount & Last Used: HX OF-ON MEDICATION FOR-PRESCRIBED Smoking Status (MU): Never Smoked Tobacco Have You Smoked in the Last Year: No Review of Systems Positive: Fever Negative: Chest Pain Positive: Cough. Negative: Shortness Of Breath Positive: Rash All Other Systems Reviewed And Are Negative: Yes Physical Exam Triage Information Reviewed: Yes Vital Signs On Initial Exam: Initial Vitals Temp Pulse Resp BP Pulse Ox 100.4 F 94 16 117/96 95 10/19/19 19:51 10/19/19 19:51 10/19/19 19:51 10/19/19 19:51 10/19/19 19:51 Vital Signs Reviewed: Yes Appearance: Positive: Well-Appearing Skin: Positive: Warm, Dry Head/Face: Positive: Normal Head/Face Inspection Eyes: Positive: Normal, Conjunctiva Clear ENT: Positive: Pharynx normal Respiratory/Lung Sounds: Positive: Clear to Auscultation, Breath Sounds Present Cardiovascular: Positive: Normal, RRR Musculoskeletal: Positive: Limited @ - left knee, Other - edema noted to left knee, surgical site intact with surrouding erythema, able to slightly flex knee Neurological: Positive: Normal Psychiatric: Positive: Normal Procedures - Sedation Patient Received Moderate/Deep Sedation with Procedure: No Diagnostics - Vital Signs Vital Signs Temp Pulse Resp BP Pulse Ox 10/19/19 19:51 100.4 F 94 16 117/96 95 - Laboratory Result Diagrams: 10/19/19 20:27 10/19/19 20:27 Lab Statement: Any lab studies that have been ordered have been reviewed, and results considered in the medical decision making process. Re-Evaluation - Re-Evaluation First Eval Comment: discussed dr vu will come in for knee aspiration Second Eval Re-Evaluation Time: 00:00 Comment: discussed can take home pain meds Course/Dx - Course Course Of Treatment: 64 year old male presents with fever today. States it has increased swelling to his left knee that he noticed today. He also has a new rash to the left knee. He states he has same range of motion of knee as did post surgery. He sees an occasional cough that is not new. He denies any urinary symptoms. No one else is sick. he denies any increase in pain in the knee. Has been taking Percocet with last dose 2 hours. fever at home was 100.8. He states he just feels very fatigued. he had a knee replacement on by Dr. Russell. On exam has surgical site noted to left knee with erythema surrounding it that is warm to touch. Some edema noted to the knee. Does have some flexion and extension of the knee which patient states is what he's had since the surgery. wbc normal. crp elevated. is not tachycardia. had temp initially of 100.4. gave fluids. discussed with dr vu who came in and aspirated knee. gram stain shows no organism. gave dose of cefazolin and discussed with dr vu will discharge on keflex. told follow up with ortho. told if symptoms worsen to return. patient understand and agrees with plan. - Febrile Illness Differential Diagnoses: Cellulitis, Sepsis, Viremia - Diagnoses Provider Diagnoses: Left leg cellulitis, Status post total knee replacement, left Discharge ED - Sign-Out/Discharge Documenting (check all that apply): Patient Departure - Discharge Plan Condition: Good Disposition: HOME Prescriptions: Cephalexin CAP* [Keflex CAP*] 500 mg PO QID #40 cap Patient Education Materials: Cellulitis (ED) Referrals: David Perry DO [Primary Care Provider] - Additional Instructions: take keflex four times a day for 10 days elevate leg, ice Take normal pain medication as prescribed add on colace or miralax as needed for constipation follow up with ortho Return to ED if develop any new or worsening symptoms - Billing Disposition and Condition Condition: GOOD Disposition: Home - Attestation Statements Provider Attestation: I have seen the patient with the BOB and agree with the plan and documentation below except as noted: 64 y/o male with a history of recent knee replacement and erythema to the knee. Orthopedics consult, performed aspiration, does not show evidence of septic joint. Patient discharged with diagnosis of cellulitis. Dimitri Blackwell MD
[2019-10-19] MEDS: NS 0.9% 1000 ML** 1,000 ML IV.FLUID IV ONE ×2 (20:30→21:59)
[2019-10-19 20:42] LABS: ABS Eosinophils 0.2 10^3/ul (0-0.6); ABS Lymphocytes 0.6 10^3/ul (1.0-4.8); ABS Neutrophils 6.3 10^3/ul (1.5-7.7); Eosinophil % 2.6 %; Hematocrit 33 % (42-52); Hemoglobin 11.2 g/dL (14.0-18.0); Lymphocyte % 7.4 %; Mean Corpuscular HGB Conc 34 g/dL (31-36); Mean Corpuscular Hemoglobin 31 pg (27-31); Mean Corpuscular Volume 91 fL (80-94); Mean Platelet Volume 7.4 fL (7.4-10.4); Platelet Count 215 10^3/uL (150-450); Red Blood Count 3.65 10^6 /uL (4.18-5.48); Red Cell Distribution Width 14 % (10-15); White Blood Count 8.2 10^3/uL (3.5-10.8)
[2019-10-19 20:49] LABS: Activated Partial Thrombo Time 34.6 seconds (26.0-38.0); INR 1.25 (0.82-1.09)
[2019-10-19 20:55] LABS: Albumin 3.9 g/dL (3.2-5.2); Albumin/Globulin Ratio 1.3 (1-3); BUN/Creatinine Ratio 20.2 (8-20); C Reactive Protein 130.69 mg/L (<8.01); Calcium 8.8 mg/dL (8.6-10.3); EGFR African American 74.2 (>60); EGFR Non-African American 61.4 (>60); Potassium 4.3 mmol/L (3.5-5.0); Total Bilirubin 0.6 mg/dL (0.2-1.0); Total Protein 6.9 g/dL (6.4-8.9)
[2019-10-19 20:58] LABS: Influenza A Molecular Negative (Negative); Influenza B Molecular Negative (Negative)
[2019-10-19 21:27] LABS: Urine Appearance Clear; Urine Bilirubin Negative (Negative); Urine Blood 2+ (Negative); Urine Color Yellow; Urine Glucose Negative (Negative); Urine Ketones Negative (Negative); Urine Nitrite Negative (Negative); Urine Protein Negative (Negative); Urine Urobilinogen Negative (Negative)
[2019-10-19 21:33] LABS: Urine Bacteria Absent (Absent); Urine Red Blood Cell 3+(>10/hpf) (Absent); Urine White Blood Cell Trace(0-5/hpf) (Absent)
[2019-10-19 21:44] LABS: Erythrocyte Sed Rate 67 mm/Hr (0-19)
[2019-10-19] MEDS ORDERED: Lidocaine 1% MDV 20 ML INJ ONE (22:06)
[2019-10-19 22:54] LABS: Body Fluid Source Synovial Fluid
[2019-10-19] MEDS ORDERED: Lidocaine 1% INJ* 10 MG/ML 30 ML SDV INJ ONE (23:00)
[2019-10-19] MEDS ORDERED: ceFAZolin 1 GM ADVAN(*) 1 GM in NS 0.9% 50 ML* 50 ML IVPB ONE (23:27)
[2019-10-19 23:49] LABS: Body Fluid Mono 4 %
[2019-10-20 00:57] VITALS: BP 140/68
--- NOTE | 2019-10-20 03:43 | CONS ---
CONSULTATION REPORT: DATE OF CONSULT: 10/19/19 - EMERGENCY DEPT. CHIEF COMPLAINT: Fever status post left total knee arthroplasty 4 days ago. HISTORY OF PRESENT ILLNESS: Mr. Townsend underwent a left total knee arthroplasty on 10/15/19. He had done well. He was discharged, everything was uneventful and then today, he developed more redness about the left knee and a fever. They came into the emergency room tonight as the fever persisted throughout the day, the highest fever documented was 100.9. He does not feel particularly ill. He has not complained of any significant calf pain or any difficulty breathing. The knee is sore, but it is not significantly more sore than it was yesterday, but he has had the fever the whole day. He does tell me that after he had his right total knee replacement a year ago, Dr. Russell put him on an antibiotic in the early postoperative course as she thought this was not looking as good as she would like. PAST MEDICAL HISTORY: Hypertension, hyperlipidemia, depression, anxiety, sleep apnea. PAST SURGICAL HISTORY: Right total knee arthroplasty, right knee arthroscopy, right foot surgery, lumbar surgery. MEDICATIONS: 1. Amlodipine. 2. Fish oil. 3. Trazodone. 4. Nasonex. 5. Venlafaxine. 6. Clonidine. 7. Lovastatin. 8. Multivitamin. 9. Vitamin B12. 10. Olopatadine. 11. Tamsulosin. 12. Magnesium. ALLERGIES: PINWORM MEDICATION. FAMILY HISTORY: Diabetes, coronary artery disease, cancer. SOCIAL HISTORY: He lives with his . He does not smoke or use drugs. REVIEW OF SYSTEMS: As above. PHYSICAL EXAM: General: Awake, alert, very pleasant. Temperature is 100.4 at 7:51 this evening, pulse rate 80, blood pressure 138/65, satting 96% on room air. Musculoskeletal: He has some erythema over the anterior knee particularly on the distal aspect. There is mild, what I would call, appropriate warmth about the left knee for being 4 days postop. It is a little tender in the area. I can actively move the knee about 45 degrees. He has no tenderness with compression or squeezing of the calf. He can flex and extend the ankle and wiggle the toes with minimal discomfort. Logroll of the hip shows no discomfort. An effusion in the left knee is present. DIAGNOSTIC STUDIES: White blood cell count is 8.2, ESR is 62. CRP is 130. Chemistry shows sodium of 133, creatinine of 1.19, glucose of 138. INR is 1.25. UA is negative. Influenza A and B rapid tests are negative. IMPRESSION: Four days status post left total knee with increased erythema over the distal aspect around the wound today and a fever, which at its maximum was documented at 100.9 sublingually today. PLAN: I do want to go ahead and rule out infection, so I aspirated the knee. We will get the preliminary results in the form of a Gram-stain and a RapID STAPH test. We will follow up that. I think if that is all negative, given that he does not particularly look ill, we could send him home on a p.o. antibiotic such as Keflex and await the definitive cultures, but we will follow up the results of those labs and then disposition to follow that. [id number]/[facility] #: [id number] KENDELL
--- NOTE | 2019-10-20 06:11 | PRO ---
DATE OF PROCEDURE: 10/19/19 - EMERGENCY DEPT DATE OF : 53 PROCEDURALIST: Naldo Ortega MD BUSBOY: None. ANESTHESIA: None. PRE-PROCEDURE DIAGNOSIS: Fever status post left total knee arthroplasty. POST-PROCEDURE DIAGNOSIS: Fever status post left total knee arthroplasty. PROCEDURE PERFORMED: Aspiration of left knee joint. INDICATIONS: Mr. Townsend has the aforementioned fever and increased redness about the knee. We talked about options. He wanted to proceed. ESTIMATED BLOOD LOSS: 1 mL. COMPLICATIONS: None. FINDINGS: See above and below. DESCRIPTION OF PROCEDURE: Victor Hugo was seen and the area was cleansed with Betadine followed by ChloraPrep. Using sterile technique, I then used a superolateral peripatellar approach to cannulate the left knee joint with an 18- gauge needle. 10 mL of what looked like blood was aspirated. This was passed off sterilely. The puncture site was cleaned and dressed and he tolerated this very well. [id number]/[facility] #: [id number] MTDD
== END 2019-10-20 00:55 | disposition home or self-care (01) ==
LOC: ED 19:49
DX: L03.116 Cellulitis of left lower limb (principal); Z96.653 Presence of artificial knee joint, bilateral; I10 Essential (primary) hypertension; E78.5 Hyperlipidemia, unspecified; F41.9 Anxiety disorder, unspecified; F32.9 Major depressive disorder, single episode, unspecified; Z79.899 Other long term (current) drug therapy; Z88.8 Allergy status to other drugs, medicaments and biological substances
CPT/HCPCS: 20610; 36415; 71045; 80053; 81003; 81015; 82945; 83605; 83880; 84157; 85025; 85610; 85652; 85730; 86140; 87040; 87070; 87086; 87205; 87640; 87641; 89051; 89060; 96361; 96374; 99283; J0690